=== PATIENT | male | born 1935 | race African-American/Black ===

== ENCOUNTER 2018-11-01 08:52 | Inpatient (IN) | payer OTHER ==
[2018-11-01] MEDS ORDERED: FUROSEMIDE 40 MG/4 ML INJECTABLE VIAL IVPUSH ONE ×2 (09:38→11:52)
--- NOTE | 2018-11-01 09:38 | PDOC ---
History of Present Illness - General History Source: Patient Exam Limitations: No Limitations - History of Present Illness Initial Comments: 11/01/18 09:44 The patient is a 83 year old male with a significant PMH of HTN, CHF, CKD, baseline creatinine of 4.2, who presents to the emergency department with worsening leg swelling. Patient denies any pain with walking but does state he is becoming short of breath with exertion. Patient notes he had his meds changed recently but has still not noticed any improvement in his leg swelling. Patient was sent in by Dr. Iqbal for further evaluation. The patient denies chest pain, shortness of breath, headache and dizziness. Denies fever, chills, nausea, vomit, diarrhea and constipation. Denies dysuria, frequency, urgency and hematuria. Allergies: NKA Past surgical history: None reported. Social history: No reported alcohol, drug or cigarette use. PCP: Dr. Iqbal <Alisia Lazo - Last Filed: 11/01/18 11:27> <Remedios Blanco - Last Filed: 11/01/18 11:54> - General Chief Complaint: Shortness of Breath Stated Complaint: SENT BY PCP / ADMIT Time Seen by Provider: 11/01/18 09:25 Past History <Alisia Lazo - Last Filed: 11/01/18 11:27> - Past Medical History COPD: No HTN: Yes Other medical history: 1 kidney not working properly - Surgical History Appendectomy: Yes - Suicide/Smoking/Psychosocial Hx Smoking History: Never smoked <Remedios Blanco - Last Filed: 11/01/18 11:54> - Past Medical History Allergies/Adverse Reactions: Allergies Allergy/AdvReac Type Severity Reaction Status Date / Time No Allergy Information Allergy Verified 11/01/18 08:59 Available Home Medications: Ambulatory Orders Ferrous Sulfate 325 mg PO DAILY 11/01/18 Isosorbide Mononitrate [Isosorbide Mononitrate ER] 120 mg PO DAILY 11/01/18 Pravastatin Sodium [Pravachol (Nf)] 40 mg PO HS 11/01/18 Sodium Bicarbonate - 650 mg PO DAILY 11/01/18 Tamsulosin HCl [Flomax] 0.4 mg PO DAILY 11/01/18 Torsemide 20 mg PO DAILY 11/01/18 Review of Systems - Review of Systems Able to Perform ROS?: Yes Comments:: 11/01/18 09:44 ADULT ROS GENERAL/CONSTITUTIONAL: No fever or chills. No weakness. HEAD, EYES, EARS, NOSE AND THROAT: No change in vision. No ear pain or discharge. No sore throat. CARDIOVASCULAR: No chest pain or shortness of breath. RESPIRATORY: No cough, wheezing, or hemoptysis. GASTROINTESTINAL: No nausea, vomiting, diarrhea or constipation. GENITOURINARY: No dysuria, frequency, or change in urination. MUSCULOSKELETAL: No joint or muscle swelling or pain. No neck or back pain. (+) leg swelling. SKIN: No rash NEUROLOGIC: No headache, vertigo, loss of consciousness, or change in strength/ sensation. ENDOCRINE: No increased thirst. No abnormal weight change. HEMATOLOGIC/LYMPHATIC: No anemia, easy bleeding, or history of blood clots. ALLERGIC/IMMUNOLOGIC: No hives or skin allergy. <Alisia Lazo - Last Filed: 11/01/18 11:27> *Physical Exam - Vital Signs Last Vital Signs Temp Pulse Resp BP Pulse Ox 97 F L 115 H 20 172/112 H 96 11/01/18 08:55 11/01/18 08:55 11/01/18 08:55 11/01/18 08:55 11/01/18 08:55 <Alisia Lazo - Last Filed: 11/01/18 11:27> - Vital Signs Last Vital Signs Temp Pulse Resp BP Pulse Ox 97 F L 115 H 20 172/112 H 96 11/01/18 08:55 11/01/18 08:55 11/01/18 08:55 11/01/18 08:55 11/01/18 08:55 - Physical Exam Comments: GENERAL: Awake, alert, and fully oriented, in no acute distress HEAD: No signs of trauma EYES: PERRLA, EOMI, sclera anicteric, conjunctiva clear ENT: Auricles normal inspection, hearing grossly normal, nares patent, oropharynx clear without exudates. Moist mucosa NECK: Normal ROM, supple, no lymphadenopathy, JVD, or masses LUNGS: Breath sounds equal, clear to auscultation bilaterally. No wheezes, and no crackles HEART: Regular rate and rhythm, normal S1 and S2, no murmurs, rubs or gallops ABDOMEN: Soft, nontender, normoactive bowel sounds. No guarding, no rebound. No masses EXTREMITIES: Normal range of motion, 3+ pitting edema to BLE with chronic stasis changes. No clubbing or cyanosis. No cords, erythema, or tenderness NEUROLOGICAL: Cranial nerves II through XII grossly intact. Normal speech, normal gait. Motor and sensation intact SKIN: Warm, Dry, normal turgor, no rashes or lesions noted. <Remedios Blanco - Last Filed: 11/01/18 11:54> Moderate Sedation - Procedure Monitoring Vital Signs: Procedure Monitoring Vital Signs Temperature 97 F L 11/01/18 08:55 Pulse Rate 115 H 11/01/18 08:55 Respiratory Rate 20 11/01/18 08:55 Blood Pressure 172/112 H 11/01/18 08:55 O2 Sat by Pulse Oximetry (%) 96 11/01/18 08:55 <Alisia Lazo - Last Filed: 11/01/18 11:27> - Procedure Monitoring Vital Signs: Procedure Monitoring Vital Signs Temperature 97 F L 11/01/18 08:55 Pulse Rate 115 H 11/01/18 08:55 Respiratory Rate 20 11/01/18 08:55 Blood Pressure 172/112 H 11/01/18 08:55 O2 Sat by Pulse Oximetry (%) 96 11/01/18 08:55 <Remedios Blanco - Last Filed: 11/01/18 11:54> Heart Score/ECG Review - ECG Impressions Comment:: EKG read 10:00- Sinus rhythm with 1st deg AV block, rate 76 bpm. +RBBB. <Remedios Blanco - Last Filed: 11/01/18 11:54> ED Treatment Course - LABORATORY CBC & Chemistry Diagram: 11/01/18 09:43 11/01/18 09:43 <Alisia Lazo - Last Filed: 11/01/18 11:27> - LABORATORY CBC & Chemistry Diagram: 11/01/18 09:43 11/01/18 09:43 <Remedios Blanco - Last Filed: 11/01/18 11:54> Medical Decision Making - Medical Decision Making 11/01/18 11:[address] Sun and Dr. Denise, awaiting call back. <Alisia Lazo - Last Filed: 11/01/18 11:27> - Medical Decision Making 11/01/18 10:41 Pt sent by PMD for admission for fluid overload despite taking torsemide at home (in increasing doses). He has history of CKD, followed by Dr. Denise. Will obtain labs and CXR, will give lasix IV, and will plan for admission. 11/01/18 11:34 Case d/w Dr. Denise, will evaluate. Patient has been accepted to hospitalist service (as per Dr. Sinha, she is admitting to hospitalist today). 11/01/18 11:53 D/w hospitalist Dr. Colunga, I will give an additional 40 mg lasix. D/w Dr. Hay, covering Dr. Sun. Will evaluate. <Remedios Blanco - Last Filed: 11/01/18 11:54> *DC/Admit/Observation/Transfer <Alisia Lazo - Last Filed: 11/01/18 11:27> - Discharge Dispostion Decision to Admit order: Yes <Remedios Blanco - Last Filed: 11/01/18 11:54> Diagnosis at time of Disposition: CHF (congestive heart failure) Qualifiers: Heart failure type: unspecified Heart failure chronicity: acute on chronic Qualified Code(s): I50.9 - Heart failure, unspecified - Discharge Dispostion Condition at time of disposition: Guarded
[2018-11-01] MEDS ORDERED: FUROSEMIDE 40 MG/4 ML INJECTABLE VIAL ONE ×2 (09:50→12:11)
[2018-11-01 09:56] LABS: BASO % 1.5 % (0-2.0); EOS % 3.2 % (0-4.5); HEMATOCRIT 35.4 % (35.4-49); HEMOGLOBIN 11.8 GM/dL (11.7-16.9); LYMPH % 16.4 % (8-40); MCHC 33.4 g/dl (32.0-35.9); MEAN CELL VOLUME 83.8 fl (80-96); MEAN PLT VOLUME 8.9 fl (7.5-11.1); MONO % 12.8 % (3.8-10.2); NEUT % 66.1 % (42.8-82.8); PLATELET COUNT 217 K/MM3 (134-434); RBC 4.22 M/mm3 (4.00-5.60); RDW 19.6 % (11.9-15.9); VENOUS PC02 41.9 mmHg (38-52); VENOUS PH 7.38 (7.32-7.42); WHITE BLOOD COUNT 5.1 K/mm3 (4.0-10.0)
[2018-11-01 10:06] LABS: INR 1.33 (0.83-1.09); PROTHROMBIN TIME (PATIENT) 15.7 SEC (9.7-13.0)
[2018-11-01 10:08] LABS: ACTIVATED PTT 35.3 SECONDS (25.2-36.5)
[2018-11-01 10:24] LABS: ALBUMIN 2.9 g/dl (3.4-5.0); ALK PHOS 100 U/L (45-117); ANION GAP 7 MMOL/L (8-16); BILIRUBIN,TOTAL 1.1 mg/dL (0.2-1); BLOOD UREA NITROGEN 37 mg/dL (7-18); CALCIUM 8.7 mg/dL (8.5-10.1); CHLORIDE 113 mmol/L (98-107); CO2 23 mmol/L (21-32); CREATININE 3.9 mg/dL (0.55-1.3); GLUCOSE,RANDOM 80 mg/dL (74-106); MAGNESIUM 2.5 mg/dL (1.8-2.4); N-TERMINAL BNP 15149.7 pg/ml (5-450); PHOSPHOROUS 3.4 mg/dL (2.5-4.9); POTASSIUM 4.2 mmol/L (3.5-5.1); SGOT/AST 11 U/L (15-37); SGPT/ALT 12 U/L (13-61); SODIUM 143 mmol/L (136-145); TOT PROT 7.3 g/dl (6.4-8.2)
[2018-11-01 10:49] LABS: URINE APPEARANCE CLEAR; URINE BILIRUBIN NEGATIVE (<2.0 mg/dL); URINE COLOR STRAW; URINE GLUCOSE (UA) NEGATIVE (NEGATIVE); URINE KETONE NEGATIVE (NEGATIVE); URINE LEUK ESTERASE NEGATIVE (NEGATIVE); URINE NITRITE NEGATIVE (NEGATIVE); URINE PROTEIN 3+ (NEGATIVE); URINE UROBILINOGEN NEGATIVE mg/dL (0.2-1.0)
[2018-11-01 11:00] LABS: URINE MUCUS RARE
--- NOTE | 2018-11-01 11:51 | HP ---
Admitting History and Physical - Primary Care Physician PCP: Tavo Iqbal - Admission Chief Complaint: SOB, weakness and leg swelling History of Present Illness: Pt is an 83 yo M with PMHx of HTN, CHF, CKD presenting with worsening SOB, weakness and leg swelling over the past month. Pt has dyspnea on exertion, orthopnea, PND and eventually had dyspnea even at rest. He reports bilateral osteoarthritis of knee, necessitating walking with a cane but has been more limited by the SOB. Recently his torsemide was increased to 60mg daily and he notes increased frequency of urine, but no blood or dysuria, flank pain or fever. He has no known history of diabetes. Pt followed up with his PCP on and was asked to come into the hospital for fluid overload treatment, but could only be brought in by the daughter today. Pt had likely ECHO done in [facility] about 2 months ago, unsure of results. Does not know if he had stress test done before. Unsure of creatinine- per ED 4.2 in past, 3.9 today. Pt reports worsening kidney function in the past year, unsure of when he was diagnosed with CKD. Pt 's daughter noted he has not been able to follow up for dialysis due to insurance issues. Lives with daughter and her and is said to be compliant on his medications. Nephro-Dr Katharina Singh Cardiol- Dr [phone], fax: [phone] ED Course: CXR- congestive features EKbpm, SR, with first degree AB block, RBBB, Laxis deviation, TWI- II, III, V6, QTC-519 BUN/Cr-37/3.9, BNP-15, 149.7, trops 0.05, UA- Spgr-1.008, Protein 3+ History Source: Patient, Family Member Limitations to Obtaining History: No Limitations - Past Medical History Cardiovascular: Yes: CHF, HTN Renal/: Yes: Renal Failure Heme/Onc: Yes: Anemia Musculoskeletal: Yes: Osteoarthritis (B/l knees) - Smoking History Smoking history: Former smoker (Smoked 1-2 cigarettes for over 60years quit 4 years ago) Have you smoked in the past 12 months: No Home Medications - Allergies Allergies/Adverse Reactions: Allergies Allergy/AdvReac Type Severity Reaction Status Date / Time No Allergy Information Allergy Verified 11/01/18 08:59 Available - Home Medications Home Medications: Ambulatory Orders Ferrous Sulfate 325 mg PO TID 11/01/18 Isosorbide Mononitrate [Isosorbide Mononitrate ER] 120 mg PO DAILY 11/01/18 Metoprolol Succinate 50 mg PO DAILY 11/01/18 Pravastatin Sodium [Pravachol (Nf)] 40 mg PO HS 11/01/18 Sodium Bicarbonate - 650 mg PO DAILY 11/01/18 Tamsulosin HCl [Flomax] 0.4 mg PO DAILY 11/01/18 Torsemide 60 mg PO DAILY 11/01/18 Family Disease History - Family Disease History Family History: Denies Review of Systems - Review of Systems Constitutional: denies: Chills, Diaphoresis, Fever Eyes: reports: No Symptoms HENT: reports: No Symptoms Neck: denies: Stiffness Cardiovascular: reports: Edema, Shortness of Breath. denies: Chest Pain, Palpitations Respiratory: reports: Cough, Exercise Intolerance, Orthopnea, SOB, SOB on Exertion. denies: Hemoptysis, Wheezing Gastrointestinal: denies: Abdominal Pain Genitourinary: reports: Frequency. denies: Burning, Dysuria, Hematuria Musculoskeletal: reports: Joint Pain. denies: Back Pain Neurological: denies: Change in LOC, Change in Speech, Confusion, Numbness, Parasthesia, Pre-Existing Deficit, Seizure, Syncope, Tremors Physical Examination Vital Signs: Vital Signs Temperature 97 F L 11/01/18 08:55 Pulse Rate 97 H 11/01/18 10:04 Respiratory Rate 22 H 11/01/18 10:04 Blood Pressure 151/93 11/01/18 10:04 O2 Sat by Pulse Oximetry (%) 100 11/01/18 10:04 Constitutional: Yes: Calm, Obese Eyes: Yes: Conjunctiva Clear Neck: Yes: Supple Cardiovascular: Yes: Regular Rate and Rhythm, JVD, S1, S2 Respiratory: Yes: CTA Bilaterally, Rales Gastrointestinal: Yes: Normal Bowel Sounds, Abdomen, Obese Renal/: No: CVA Tenderness - Left, CVA Tenderness - Right Edema: Yes Edema: LLE: 3+, RLE: 3+ Neurological: Yes: Alert, Oriented, Cran Nerves II-XII Intact. No: Confusion, Facial Droop ...Motor Strength: LUE, LLE, RUE, RLE Psychiatric: Yes: Alert, Oriented Labs: CBC, BMP 11/01/18 09:43 11/01/18 09:43 Assessment/Plan Ambulatory Orders Ferrous Sulfate 325 mg PO TID 11/01/18 Isosorbide Mononitrate [Isosorbide Mononitrate ER] 120 mg PO DAILY 11/01/18 Metoprolol Succinate 50 mg PO DAILY 11/01/18 Pravastatin Sodium [Pravachol (Nf)] 40 mg PO HS 11/01/18 Sodium Bicarbonate - 650 mg PO DAILY 11/01/18 Tamsulosin HCl [Flomax] 0.4 mg PO DAILY 11/01/18 Torsemide 60 mg PO DAILY 11/01/18 Current Medications Furosemide (Lasix Injection -) 60 mg IVPUSH BID@0600,1400 [facility] Heparin Sodium (Porcine) (Heparin -) 5,000 unit SQ Q8H [facility] Last Admin: 11/01/18 14:20 Dose: 5,000 unit Metoprolol Succinate (Toprol Xl -) 50 mg PO DAILY [facility] Last Admin: 11/01/18 14:47 Dose: Not Given Non-Formulary Medication (Ferrous Sulfate [Ferrous Sulfate]) 325 mg PO TID [facility] Non-Formulary Medication (Isosorbide Mononitrate [Isosorbide Mononitrate Er]) 120 mg PO DAILY [facility] Last Admin: 11/01/18 14:27 Dose: Not Given Non-Formulary Medication (Pravastatin Sodium) 40 mg PO [facility] Sodium Bicarbonate (Sodium Bicarbonate -) 650 mg PO DAILY [facility] Last Admin: 11/01/18 14:27 Dose: Not Given Tamsulosin HCl (Flomax -) 0.4 mg PO DAILY [facility] Last Admin: 11/01/18 14:27 Dose: Not Given Pt is an 83 yo M with PMHx of HTN, CHF, CKD presenting with worsening SOB, weakness and leg swelling over the past month. Pt has dyspnea on exertion, orthopnea, PND and eventually had dyspnea even at rest. 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, could be in light of worsening kidney function, appears pt is compliant No clear recent infections, EKG with some ischemic changes, unsure of duration Worsening function NYHA class III/IV Unsure if systolic or diastolic- ECHO pending Cardio consult Pt on torsemide 60mg at home, received 80mg lasix in ED Start iv furosemide 60mg bid Strict ins and outs Daily weights Fluid restriction Cont isosorbide Cont metoprolol Prolonged QTC- monitor lytes avoid QTC prolonging drugs Oxygen therapy as needed HTN BP elevated on admission to 172/112 >>151/93 Pt took am meds Cont metoprolol Consider adding ACEI if cards and nephro on board HLD Lipitor 40mg daily CKD Pt with proteinuria Cr- 3.9 Lasix 60mg bid Apears not to have responded to torsemide at home Avoid nephrotoxic meds Strict ins and outs Fluid restriction Obesity HgbA1c BPH Tamsolusin 0.4mg daily FEN No standing fluids Monitor lytes Sodium restricted diet, renal diet, cholesterol free PPx Heparin sq 40mg Q8H Dispo Tele Visit type - Emergency Visit Emergency Visit: Yes ED Registration Date: 11/01/18 Care time: The patient presented to the Emergency Department on the above date and was hospitalized for further evaluation of their emergent condition. - New Patient This patient is new to me today: Yes Date on this admission: 11/01/18 - Critical Care Critical Care patient: No
--- NOTE | 2018-11-01 12:33 | CON.CARD ---
Consult Consult Specialty:: Cardiology for dr. Sun Reason for Consultation:: chf - History of Present Illness History of Present Illness: The patient is a 83 year old male with a significant PMH of HTN, CHF, CKD, baseline creatinine of 4.2, who presents to the emergency department with worsening leg swelling. Patient denies any pain with walking but does state he is becoming short of breath with exertion. Patient notes he had his meds changed recently but has still not noticed any improvement in his leg swelling. Patient was sent in by Dr. Iqbal for further evaluation. The patient denies chest pain, shortness of breath, headache and dizziness. Denies fever, chills, nausea, vomit, diarrhea and constipation. Denies dysuria, frequency, urgency and hematuria. Allergies: NKA Past surgical history: None reported. Social history: No reported alcohol, drug or cigarette use. PCP: Dr. Iqbal - History Source History Provided By: Patient, Medical Record - Past Medical History Cardio/Vascular: Yes: CAD, CHF, HTN, Hyperlipdemia Renal/: Yes: Renal Failure - Smoking History Smoking history: Never smoked Home Medications - Allergies Allergies/Adverse Reactions: Allergies Allergy/AdvReac Type Severity Reaction Status Date / Time No Allergy Information Allergy Verified 11/01/18 08:59 Available - Home Medications Home Medications: Ambulatory Orders Ferrous Sulfate 325 mg PO TID 11/01/18 Isosorbide Mononitrate [Isosorbide Mononitrate ER] 120 mg PO DAILY 11/01/18 Metoprolol Succinate 50 mg PO DAILY 11/01/18 Pravastatin Sodium [Pravachol (Nf)] 40 mg PO HS 11/01/18 Sodium Bicarbonate - 650 mg PO DAILY 11/01/18 Tamsulosin HCl [Flomax] 0.4 mg PO DAILY 11/01/18 Torsemide 60 mg PO DAILY 11/01/18 Review of Systems - Review of Systems Constitutional: reports: No Symptoms Eyes: reports: No Symptoms HENT: reports: No Symptoms Neck: reports: No Symptoms Cardiovascular: reports: Edema, Shortness of Breath Respiratory: reports: SOB Gastrointestinal: reports: No Symptoms Genitourinary: reports: No Symptoms Breasts: reports: No Symptoms Reported Musculoskeletal: reports: No Symptoms Integumentary: reports: No Symptoms Neurological: reports: No Symptoms Endocrine: reports: No Symptoms Hematology/Lymphatic: reports: No Symptoms Psychiatric: reports: No Symptoms Vital Signs: Vital Signs Temperature 97 F L 11/01/18 08:55 Pulse Rate 97 H 11/01/18 10:04 Respiratory Rate 22 H 11/01/18 10:04 Blood Pressure 151/93 11/01/18 10:04 O2 Sat by Pulse Oximetry (%) 100 11/01/18 10:04 Constitutional: Yes: Well Nourished, No Distress, Calm Eyes: Yes: WNL, Conjunctiva Clear, EOM Intact HENT: Yes: WNL, Atraumatic, Normocephalic Neck: Yes: WNL, Supple, Trachea Midline Respiratory: Yes: WNL, Regular, CTA Bilaterally Gastrointestinal: Yes: WNL, Normal Bowel Sounds Renal/: Yes: WNL Cardiovascular: Yes: WNL, Regular Rate and Rhythm Musculoskeletal: Yes: WNL Extremities: Yes: WNL Edema: Yes Edema: LLE: 2+, RLE: 2+ Integumentary: Yes: WNL Neurological: Yes: WNL, Alert, Oriented ...Motor Strength: WNL Psychiatric: Yes: WNL, Alert, Oriented - Other Data Labs, Other Data: CBC, BMP 11/01/18 09:43 11/01/18 09:43 INR, PTT INR 1.33 (0.83-1.09) H 11/01/18 09:43 Troponin, BNP 11/01/18 09:43 Troponin I 0.05 B-Natriuretic Peptide 96191.7 H Troponin, BNP 11/01/18 09:43 Troponin I 0.05 B-Natriuretic Peptide 48701.7 H Imaging - Results Chest X-ray: Image Reviewed (pleural effusions increased markings) EKG: Image Reviewed (sr 1 st degree avb RBBB) Problem List - Problems (1) CHF (congestive heart failure) Code(s): I50.9 - HEART FAILURE, UNSPECIFIED Qualifiers: Heart failure type: unspecified Heart failure chronicity: acute on chronic Qualified Code(s): I50.9 - Heart failure, unspecified Assessment/Plan 83 year old male with a significant PMH of HTN, CHF, CKD,ASHD baseline creatinine of 4.2, who presents to the emergency department with worsening leg swelling. High BNP, Plan IV lasix renal consult appreciated echo old records regarding prior cardiac w/u BP control -will add Amlodipine 5 QD Lipid profile DVT plx Coverage for dr. Sun
[2018-11-01] MEDS ORDERED: HEPARIN NA (PORCINE) 5,000 UNITS/ML 1ML VIAL SQ SCH (12:45)
[2018-11-01] MEDS ORDERED: PATIENT'S OWN MEDICATION (NON-FORMULARY) (Isosorbide Mononitrate [Isosorbide Mononitrate E PO SCH (14:15)
[2018-11-01] MEDS: TAMSULOSIN HCL 0.4 MG CAP PO SCH (14:27)
[2018-11-01] MEDS: SODIUM BICARBONATE 650 MG TABLET PO SCH (14:27)
--- NOTE | 2018-11-01 14:39 | EKG ---
Test Reason : Blood Pressure : / mmHG Vent. Rate : 076 BPM Atrial Rate : 076 BPM P-R Int : 246 ms QRS Dur : 158 ms QT Int : 462 ms P-R-T Axes : 048 -35 -18 degrees QTc Int : 519 ms SINUS RHYTHM WITH 1ST DEGREE A-V BLOCK WITH OCCASIONAL PREMATURE VENTRICULAR COMPLEXES LEFT AXIS DEVIATION RIGHT BUNDLE BRANCH BLOCK ABNORMAL ECG NO PREVIOUS ECGS AVAILABLE Confirmed by Yo Moraes MD ([id number]) on 11/01/2018 2:39:26 PM Referred By: Confirmed By:Yo Moraes MD
--- NOTE | 2018-11-01 16:58 | PN ---
Teaching Attending Note Name of Resident: Esperanza Colunga ATTENDING PHYSICIAN STATEMENT I saw and evaluated the patient. I reviewed the resident's note and discussed the case with the resident. I agree with the resident's findings and plan as documented. SUBJECTIVE: CC: worsening SOB . HPI: 83 y/o man with h/o CKD, and HTN,and BPH who presented with worsening SOb and LE edema. He is poor historian and hx was obtained from him and his daughter. He has been having worsening SOB with exertion only for a while ( ? duration). He was on diuretics before but those were stopped 1-2 years ago. he follows with renal and cardiology for that. lately , he has been more SOB only with exertion , but no CP , so he saw his primary care doctor who spoke to his electronic publishing specialist Dr. Trinh. he was prescribed Torsemide 20 mg tab and was asked to take one pill three times a day. he did not take as he thinks diuretics don' t work for him. he was asked to come to ER on 10/30 but he did not . He also reprots LE edema which is progressive. No SOB at rest . He denies any h/o CHF. He had some cardiac testing done at [facility] 2 months ago, but not sure of details. In ER , he was given lasix and got some relief OBJECTIVE: NAD , awake, alert, oriented and cooperative HEENT: NC, AT, no facial droop. EOMI, round equal pupils, reactive to light , NO LAP in neck CV: RRR, No MRG, + JVD. Lungs: wheezing and crackles. Abd: obese, soft, NT, ND , NL BS Ext : 2+ edema , thick , hyperpigmented skin. fungal infection in some interdigital webs . Neuro : no facial droop. EOMI, round equal pupils, reactive to light, tongue and uvula at midline. sterngth 5/5 in upper and lower extremities proximally and distally. ASSESSMENT AND PLAN: 83 y/o man with h/o CKD, and HTN, and BPH who presented with worsening SOb and LE edema. 1- SOB, and LE edema: He is clearly volume overloaded. this could be due to 2 contributing factors, worsening CKD and possible cardiac dysfunction. he does not carry a diagnosis of heart failure, but will need to check his EF - start lasix 60 mg BID. awaiting Cardiac recs - cont his BB and Imdur -echo - Strict I&O and weights. - cardiac eval . - will try to obtain some records from his electronic publishing specialist on Saturday 2- CKD: not sure of Cr base line. - will d/w his field representative/health education . Monitor with diuresis 3- H/o TN: cont BB and nitrate 4- Tinea Pedis : use nystatin topically DVT PX: heparin
[2018-11-01 18:32] VITALS: BMI 34.0
[2018-11-01] MEDS: FERROUS SO4 325 MG TABLET (FP) PO SCH (21:09)
[2018-11-01] MEDS: ATORVASTATIN CA 10 MG TABLET (FP) PO SCH (21:09)
[2018-11-01] MEDS: HEPARIN NA (PORCINE) 5,000 UNITS/ML 1ML VIAL SQ SCH (21:09)
[2018-11-01] MEDS: ALBUTEROL SO4 2.5/IPRATROPIUM 0.5 INH SOL 3 ML VIAL.NEB. NEB SCH (21:45)
[2018-11-01] MEDS ORDERED: PATIENT'S OWN MEDICATION (NON-FORMULARY) (Pravastatin Sodium 40 MG) PO SCH (22:00)
[2018-11-01] MEDS ORDERED: PATIENT'S OWN MEDICATION (NON-FORMULARY) (Ferrous Sulfate [Ferrous Sulfate] 325 MG) PO SCH (22:00)
[2018-11-02] MEDS: FERROUS SO4 325 MG TABLET (FP) PO SCH ×3 (05:49→22:04)
[2018-11-02] MEDS: HEPARIN NA (PORCINE) 5,000 UNITS/ML 1ML VIAL SQ SCH ×3 (05:49→22:04)
[2018-11-02] MEDS: FUROSEMIDE 40 MG/4 ML INJECTABLE VIAL IVPUSH SCH ×2 (05:49→15:09)
[2018-11-02 07:38] LABS: BASO % 1.2 % (0-2.0); EOS % 3.2 % (0-4.5); HEMATOCRIT 35.3 % (35.4-49); HEMOGLOBIN 11.7 GM/dL (11.7-16.9); LYMPH % 14.7 % (8-40); MCHC 33.2 g/dl (32.0-35.9); MEAN CELL VOLUME 84.2 fl (80-96); MEAN PLT VOLUME 9.3 fl (7.5-11.1); NEUT % 69.9 % (42.8-82.8); PLATELET COUNT 207 K/MM3 (134-434); RBC 4.19 M/mm3 (4.00-5.60); RDW 19.5 % (11.9-15.9); WHITE BLOOD COUNT 5.1 K/mm3 (4.0-10.0)
[2018-11-02 07:45] LABS: INR 1.34 (0.83-1.09); PROTHROMBIN TIME (PATIENT) 15.8 SEC (9.7-13.0)
[2018-11-02 07:48] LABS: ACTIVATED PTT 31.3 SECONDS (25.2-36.5)
[2018-11-02] MEDS: ALBUTEROL SO4 2.5/IPRATROPIUM 0.5 INH SOL 3 ML VIAL.NEB. NEB SCH ×2 (08:26→20:50)
[2018-11-02 08:49] LABS: ALBUMIN 2.7 g/dl (3.4-5.0); ALK PHOS 97 U/L (45-117); ANION GAP 9 MMOL/L (8-16); BILIRUBIN,TOTAL 1.1 mg/dL (0.2-1); BLOOD UREA NITROGEN 37 mg/dL (7-18); CALCIUM 8.7 mg/dL (8.5-10.1); CHLORIDE 111 mmol/L (98-107); CO2 24 mmol/L (21-32); CREATININE 3.9 mg/dL (0.55-1.3); GLUCOSE,RANDOM 74 mg/dL (74-106); MAGNESIUM 2.5 mg/dL (1.8-2.4); PHOSPHOROUS 3.8 mg/dL (2.5-4.9); SGOT/AST 7 U/L (15-37); SGPT/ALT 11 U/L (13-61); SODIUM 145 mmol/L (136-145)
--- NOTE | 2018-11-02 09:37 | CONSULT ---
Consult - text type - Consultation Consultation Note: Renal consult for GENNARO on CKD with fluid overload This is a 83 year old gentleman with hx of CKD stage 4 ( baseline Cr ~3.3), Hypertension, DM, ? CHF who was sent into the ER for CHF exacerbation/fluid overload with Cr of 3.9. Pt was seen in the office earlier this week and noted to have fluid overload with Cr of 4.1. Pt was started on Torsemide 40mg Daily in Sep and Nifedpine ER however edema and and BP were not improved. Unclear if pt was actually taking medications. On most recent visit to the office pt was taken off Nifedipine ER because of worsening LE swelling and advised to continue Torsemdie 60mg daily. Pt denies any NSAID use. Denies any symptoms of obstruction. No N/V/D, confusion or lethargy. On IV lasix here and is urinating more. PMhx: as above Allergies: NKDA Family Hx: NC Social Hx: no T/A/D ROS: as per HPI Home Medications Medication Instructions Recorded Ferrous Sulfate 325 mg PO TID 11/01/18 Isosorbide Mononitrate [Isosorbide 120 mg PO DAILY 11/01/18 Mononitrate ER] Metoprolol Succinate 50 mg PO DAILY 11/01/18 Pravastatin Sodium [Pravachol (Nf)] 40 mg PO HS 11/01/18 Sodium Bicarbonate - 650 mg PO DAILY 11/01/18 Tamsulosin HCl [Flomax] 0.4 mg PO DAILY 11/01/18 Torsemide 60 mg PO DAILY 11/01/18 Vital Signs Temperature 98 F 11/02/18 09:20 Pulse Rate 108 H 11/02/18 09:20 Respiratory Rate 20 11/02/18 09:20 Blood Pressure 162/107 H 11/02/18 09:20 O2 Sat by Pulse Oximetry (%) 95 11/01/18 21:00 Intake & Output 10/30/18 10/31/18 11/01/18 11/02/18 23:59 23:59 23:59 23:59 Output Total 1400 250 Balance -1400 -250 Weight 98.656 kg 97.885 kg NAD awake and alert neck supple, no JVD RRR, No M/R CTA, dec BS at lung bases but no overt rales soft NT/ND Obese Abd ++ edema in LE no bladder distension CBC, BMP 11/02/18 06:00 11/02/18 06:00 Current Medications Albuterol/Ipratropium (Duoneb -) 1 amp NEB RBID [facility] Last Admin: 11/02/18 08:26 Dose: 1 amp Atorvastatin Calcium (Lipitor -) 10 mg PO HS [facility] Last Admin: 11/01/18 21:09 Dose: 10 mg Ferrous Sulfate (Feosol -) 325 mg PO TID [facility] Last Admin: 11/02/18 05:49 Dose: 325 mg Furosemide (Lasix Injection -) 60 mg IVPUSH BID@0600,1400 [facility] Last Admin: 11/02/18 05:49 Dose: 60 mg Heparin Sodium (Porcine) (Heparin -) 5,000 unit SQ TID [facility] Last Admin: 11/02/18 05:49 Dose: 5,000 unit Isosorbide Mononitrate (Imdur -) 120 mg PO DAILY [facility] Metoprolol Succinate (Toprol Xl -) 50 mg PO DAILY [facility] Last Admin: 11/01/18 14:47 Dose: Not Given Nystatin (Nystop Powder -) 1 applic TP DAILY [facility] Sodium Bicarbonate (Sodium Bicarbonate -) 650 mg PO DAILY [facility] Last Admin: 11/01/18 14:27 Dose: Not Given Tamsulosin HCl (Flomax -) 0.4 mg PO DAILY [facility] Last Admin: 11/01/18 14:27 Dose: Not Given 83 year old gentleman with hx of CKD stage 4 (baseline Cr ~3.3) , Hypertension, DM, ? CHF who was sent into the ER for CHF exacerbation/fluid overload with Cr of 3.9. #CKD stage 4 (baseline Cr 3.3) w/o nephrotic range proteinuria #Fluid overload/CHF exacerbation #Hypertension #BPH etiology of GENNARO intravascular volume depletion vs cardio-renal syndrome Check urine studies for FeUrea, UPCR Renal US to ensure there is no obstruction/structural abnormality with the kidney Continue IV Lasix 60mg BID Avoid HENRI/ARB, NSAIDs during this time no urgent indication for [employer] Trend renal function and electrolytes daily Continue Flomax Cardiology following, to obtain ECHO if BP remains above goal can titrate Beta destin or add vasodilator agent but would avoid CCB as it may be a contributor to leg edema Thank you Christopher Denise DO
[2018-11-02] MEDS: TAMSULOSIN HCL 0.4 MG CAP PO SCH (09:44)
[2018-11-02] MEDS: ISOSORBIDE MONONITRATE 60 MG TAB.SR.24H (FP) PO SCH (09:45)
[2018-11-02] MEDS: SODIUM BICARBONATE 650 MG TABLET PO SCH (09:45)
--- NOTE | 2018-11-02 09:46 | PN ---
Progress Note, Physician History of Present Illness: The patient is a 83 year old male with a significant PMH of HTN, CHF, CKD, baseline creatinine of 4.2, who presents to the emergency department with worsening leg swelling. Patient denies any pain with walking but does state he is becoming short of breath with exertion. Patient notes he had his meds changed recently but has still not noticed any improvement in his leg swelling. Patient was sent in by Dr. Iqbal for further evaluation. The patient denies chest pain, shortness of breath, headache and dizziness. Denies fever, chills, nausea, vomit, diarrhea and constipation. Denies dysuria, frequency, urgency and hematuria. Allergies: NKA Past surgical history: None reported. Social history: No reported alcohol, drug or cigarette use. PCP: Dr. Iqbal - Current Medication List Current Medications: Active Medications Albuterol/Ipratropium (Duoneb -) 1 amp NEB RBID [facility] Last Admin: 11/02/18 08:26 Dose: 1 amp Atorvastatin Calcium (Lipitor -) 10 mg PO HS [facility] Last Admin: 11/01/18 21:09 Dose: 10 mg Ferrous Sulfate (Feosol -) 325 mg PO TID [facility] Last Admin: 11/02/18 05:49 Dose: 325 mg Furosemide (Lasix Injection -) 60 mg IVPUSH BID@0600,1400 [facility] Last Admin: 11/02/18 05:49 Dose: 60 mg Heparin Sodium (Porcine) (Heparin -) 5,000 unit SQ TID [facility] Last Admin: 11/02/18 05:49 Dose: 5,000 unit Isosorbide Mononitrate (Imdur -) 120 mg PO DAILY [facility] Last Admin: 11/02/18 09:45 Dose: 120 mg Metoprolol Succinate (Toprol Xl -) 50 mg PO DAILY [facility] Last Admin: 11/02/18 09:45 Dose: 50 mg Nystatin (Nystop Powder -) 1 applic TP DAILY [facility] Sodium Bicarbonate (Sodium Bicarbonate -) 650 mg PO DAILY [facility] Last Admin: 11/02/18 09:45 Dose: 650 mg Tamsulosin HCl (Flomax -) 0.4 mg PO DAILY [facility] Last Admin: 11/02/18 09:44 Dose: 0.4 mg - Objective Vital Signs: Vital Signs Temperature 98 F 11/02/18 09:20 Pulse Rate 108 H 11/02/18 09:20 Respiratory Rate 20 11/02/18 09:20 Blood Pressure 162/107 H 11/02/18 09:20 O2 Sat by Pulse Oximetry (%) 95 11/01/18 21:00 Eyes: Yes: WNL, Conjunctiva Clear, EOM Intact HENT: Yes: WNL, Atraumatic, Normocephalic Neck: Yes: WNL, Supple, Trachea Midline Cardiovascular: Yes: WNL, Regular Rate and Rhythm Respiratory: Yes: WNL, Regular, CTA Bilaterally Gastrointestinal: Yes: WNL, Normal Bowel Sounds Genitourinary: Yes: WNL Musculoskeletal: Yes: WNL Extremities: Yes: WNL Edema: Yes Edema: LLE: 2+, RLE: 2+ Integumentary: Yes: WNL Neurological: Yes: WNL, Alert, Oriented ...Motor Strength: WNL Psychiatric: Yes: WNL Labs: CBC, BMP 11/02/18 06:00 11/02/18 06:00 INR, PTT INR 1.34 (0.83-1.09) H 11/02/18 06:00 Laboratory Tests 11/01/18 11/01/18 11/01/18 09:43 09:43 09:43 WBC 5.1 RBC 4.22 Hgb 11.8 Hct 35.4 MCV 83.8 MCH 28.0 MCHC 33.4 RDW 19.6 H Plt Count 217 MPV 8.9 Absolute Neuts (auto) 3.4 Neutrophils % 66.1 Lymphocytes % 16.4 Monocytes % 12.8 H Eosinophils % 3.2 Basophils % 1.5 Nucleated RBC % 0 PT with INR 15.70 H INR 1.33 H PTT (Actin FS) 35.3 VBG pH 7.38 POC VBG pCO2 41.9 POC VBG pO2 48.0 Mixed VBG HCO3 24.3 Sodium Potassium Chloride Carbon Dioxide Anion Gap BUN Creatinine Creat Clearance w eGFR Random Glucose Hemoglobin A1c % Calcium Phosphorus Magnesium Total Bilirubin AST ALT Alkaline Phosphatase Creatine Kinase Creatine Kinase Index CK-MB (CK-2) Troponin I B-Natriuretic Peptide Total Protein Albumin Urine Color Urine Appearance Urine pH Ur Specific [place] Urine Protein Urine Glucose (UA) Urine Ketones Urine Blood Urine Nitrite Urine Bilirubin Urine Urobilinogen Ur Leukocyte Esterase Urine WBC (Auto) Urine RBC (Auto) Urine Mucus Blood Type Antibody Screen 11/01/18 11/01/1811/01/19 09:43 09:43 10:38 WBC RBC Hgb Hct MCV MCH MCHC RDW Plt Count MPV Absolute Neuts (auto) Neutrophils % Lymphocytes % Monocytes % Eosinophils % Basophils % Nucleated RBC % PT with INR INR PTT (Actin FS) VBG pH POC VBG pCO2 POC VBG pO2 Mixed VBG HCO3 Sodium 143 Potassium 4.2 Chloride 113 H Carbon Dioxide 23 Anion Gap 7 L BUN 37 H Creatinine 3.9 H Creat Clearance w eGFR 14.91 Random Glucose 80 Hemoglobin A1c % Calcium 8.7 Phosphorus 3.4 Magnesium 2.5 H Total Bilirubin 1.1 H AST 11 L ALT 12 L Alkaline Phosphatase 100 Creatine Kinase 171 Creatine Kinase Index 0.8 CK-MB (CK-2) 1.5 Troponin I 0.05 B-Natriuretic Peptide 82451.7 H Total Protein 7.3 Albumin 2.9 L Urine Color Straw Urine Appearance Clear Urine pH 7.0 Ur Specific [place] 1.008 L Urine Protein 3+ H Urine Glucose (UA) Negative Urine Ketones Negative Urine Blood Negative Urine Nitrite Negative Urine Bilirubin Negative Urine Urobilinogen Negative Ur Leukocyte Esterase Negative Urine WBC (Auto) 1 Urine RBC (Auto) <1 Urine Mucus Rare Blood Type Cancelled Antibody Screen Cancelled 11/01/18 11/02/18 11/02/18 18:30 00:30 06:00 WBC 5.1 RBC 4.19 Hgb 11.7 Hct 35.3 L MCV 84.2 MCH 28.0 MCHC 33.2 RDW 19.5 H Plt Count 207 MPV 9.3 Absolute Neuts (auto) 3.6 Neutrophils % 69.9 Lymphocytes % 14.7 Monocytes % 11.0 H Eosinophils % 3.2 Basophils % 1.2 Nucleated RBC % 0 PT with INR INR PTT (Actin FS) VBG pH POC VBG pCO2 POC VBG pO2 Mixed VBG HCO3 Sodium Potassium Chloride Carbon Dioxide Anion Gap BUN Creatinine Creat Clearance w eGFR Random Glucose Hemoglobin A1c % Calcium Phosphorus Magnesium Total Bilirubin AST ALT Alkaline Phosphatase Creatine Kinase 150 Creatine Kinase Index 1.2 CK-MB (CK-2) 1.9 Troponin I 0.06 H 0.06 H B-Natriuretic Peptide Total Protein Albumin Urine Color Urine Appearance Urine pH Ur Specific [place] Urine Protein Urine Glucose (UA) Urine Ketones Urine Blood Urine Nitrite Urine Bilirubin Urine Urobilinogen Ur Leukocyte Esterase Urine WBC (Auto) Urine RBC (Auto) Urine Mucus Blood Type Antibody Screen 11/02/18 11/02/18 11/02/18 06:00 06:00 06:00 WBC RBC Hgb Hct MCV MCH MCHC RDW Plt Count MPV Absolute Neuts (auto) Neutrophils % Lymphocytes % Monocytes % Eosinophils % Basophils % Nucleated RBC % PT with INR 15.80 H INR 1.34 H PTT (Actin FS) 31.3 VBG pH POC VBG pCO2 POC VBG pO2 Mixed VBG HCO3 Sodium 145 Potassium 4.0 Chloride 111 H Carbon Dioxide 24 Anion Gap 9 BUN 37 H Creatinine 3.9 H Creat Clearance w eGFR 14.91 Random Glucose 74 Hemoglobin A1c % 5.7 Calcium 8.7 Phosphorus 3.8 Magnesium 2.5 H Total Bilirubin 1.1 H AST 7 L ALT 11 L Alkaline Phosphatase 97 Creatine Kinase Cancelled Creatine Kinase Index CK-MB (CK-2) Troponin I 0.06 H B-Natriuretic Peptide Total Protein 7.0 Albumin 2.7 L Urine Color Urine Appearance Urine pH Ur Specific [place] Urine Protein Urine Glucose (UA) Urine Ketones Urine Blood Urine Nitrite Urine Bilirubin Urine Urobilinogen Ur Leukocyte Esterase Urine WBC (Auto) Urine RBC (Auto) Urine Mucus Blood Type Antibody Screen Problem List - Problems (1) CHF (congestive heart failure) Code(s): I50.9 - HEART FAILURE, UNSPECIFIED Qualifiers: Heart failure type: unspecified Heart failure chronicity: acute on chronic Qualified Code(s): I50.9 - Heart failure, unspecified Assessment/Plan 83 year old male with a significant PMH of HTN, CHF, CKD,ASHD baseline creatinine of 4.2, who presents to the emergency department with worsening leg swelling. High BNP, Plan IV lasix renal consult appreciated echo old records regarding prior cardiac w/u BP control -will add Amlodipine 5 QD Lipid profile DVT plx Coverage for dr. Sun
[2018-11-02] MEDS: amLODIPine BESYLATE 5 MG TABLET (FP) PO SCH (11:42)
--- NOTE | 2018-11-02 15:14 | PN ---
Progress Note (short form) - Note Progress Note: Subjective: No fever or chills. No abd pain, no SOLIS , SOB improved Objective: Vital Signs: Last Vital Signs Temp Pulse Resp BP Pulse Ox 97.7 F 72 20 140/92 92 L 11/02/18 14:56 11/02/18 14:56 11/02/18 14:56 11/02/18 14:56 11/02/18 09:00 Laboratory Results - last 24 hr 11/01/18 11/02/18 11/02/18 18:30 00:30 06:00 WBC 5.1 RBC 4.19 Hgb 11.7 Hct 35.3 L MCV 84.2 MCH 28.0 MCHC 33.2 RDW 19.5 H Plt Count 207 MPV 9.3 Absolute Neuts (auto) 3.6 Neutrophils % 69.9 Lymphocytes % 14.7 Monocytes % 11.0 H Eosinophils % 3.2 Basophils % 1.2 Nucleated RBC % 0 PT with INR INR PTT (Actin FS) Sodium Potassium Chloride Carbon Dioxide Anion Gap BUN Creatinine Creat Clearance w eGFR Random Glucose Hemoglobin A1c % Calcium Phosphorus Magnesium Total Bilirubin AST ALT Alkaline Phosphatase Creatine Kinase 150 Creatine Kinase Index 1.2 CK-MB (CK-2) 1.9 Troponin I 0.06 H 0.06 H Total Protein Albumin 11/02/18 11/02/18 11/02/18 06:00 06:00 06:00 WBC RBC Hgb Hct MCV MCH MCHC RDW Plt Count MPV Absolute Neuts (auto) Neutrophils % Lymphocytes % Monocytes % Eosinophils % Basophils % Nucleated RBC % PT with INR 15.80 H INR 1.34 H PTT (Actin FS) 31.3 Sodium 145 Potassium 4.0 Chloride 111 H Carbon Dioxide 24 Anion Gap 9 BUN 37 H Creatinine 3.9 H Creat Clearance w eGFR 14.91 Random Glucose 74 Hemoglobin A1c % 5.7 Calcium 8.7 Phosphorus 3.8 Magnesium 2.5 H Total Bilirubin 1.1 H AST 7 L ALT 11 L Alkaline Phosphatase 97 Creatine Kinase Cancelled Creatine Kinase Index CK-MB (CK-2) Troponin I 0.06 H Total Protein 7.0 Albumin 2.7 L Physical Exam: NAD CV: RRR, No MRG, + JVD. Lungs: decreased wheezing Abd: obese, soft, NT, ND , NL BS Ext: 1+ edema, thick , hyperpigmented skin. fungal infection in some interdigital webs . ASSESSMENT AND PLAN: 83 y/o man with h/o CKD, and HTN, and BPH who presented with worsening SOb and LE edema. 1- volume over load form worsening renal disease and possible acute CHF ( ? systolic vs diastolic) - cont lasix 60 BID - echo pending - spoke to Dr. Denise, cr base line 3.3 - strict I&Os - ryan obtain cardiac w/u from [facility] 2- GENNARO on CKD : likely prerenal in setting of volume overload. - renal US pending - cont diuresis 3- H/o TN: cont BB and nitrate . Norvasc added 4- Tinea Pedis : use nystatin topically DVT PX: heparin Visit type - Emergency Visit Emergency Visit: Yes ED Registration Date: 11/01/18 Care time: The patient presented to the Emergency Department on the above date and was hospitalized for further evaluation of their emergent condition. - New Patient This patient is new to me today: No - Critical Care Critical Care patient: No
[2018-11-02] MEDS: ATORVASTATIN CA 10 MG TABLET (FP) PO SCH (22:04)
[2018-11-02] MEDS: NYSTATIN POWDER 100,000 UNITS/GM - 15 GM TOPICAL POWDER TP SCH (23:00)
[2018-11-03] MEDS: FERROUS SO4 325 MG TABLET (FP) PO SCH ×3 (06:49→21:40)
[2018-11-03] MEDS: FUROSEMIDE 40 MG/4 ML INJECTABLE VIAL IVPUSH SCH ×2 (06:49→14:19)
[2018-11-03] MEDS: HEPARIN NA (PORCINE) 5,000 UNITS/ML 1ML VIAL SQ SCH ×3 (06:49→21:40)
[2018-11-03] MEDS: ALBUTEROL SO4 2.5/IPRATROPIUM 0.5 INH SOL 3 ML VIAL.NEB. NEB SCH ×2 (07:32→20:14)
--- NOTE | 2018-11-03 09:32 | PN ---
Progress Note, Physician Chief Complaint: seen and examined, no distress Feels better TELE: NSR - Current Medication List Current Medications: Active Medications Albuterol/Ipratropium (Duoneb -) 1 amp NEB RBID [facility] Last Admin: 11/03/18 07:32 Dose: 1 amp Amlodipine Besylate (Norvasc -) 5 mg PO DAILY [facility] Last Admin: 11/02/18 11:42 Dose: 5 mg Atorvastatin Calcium (Lipitor -) 10 mg PO HS [facility] Last Admin: 11/02/18 22:04 Dose: 10 mg Ferrous Sulfate (Feosol -) 325 mg PO TID [facility] Last Admin: 11/03/18 06:49 Dose: 325 mg Furosemide (Lasix Injection -) 60 mg IVPUSH BID@0600,1400 [facility] Last Admin: 11/03/18 06:49 Dose: 60 mg Heparin Sodium (Porcine) (Heparin -) 5,000 unit SQ TID [facility] Last Admin: 11/03/18 06:49 Dose: 5,000 unit Isosorbide Mononitrate (Imdur -) 120 mg PO DAILY [facility] Last Admin: 11/02/18 09:45 Dose: 120 mg Metoprolol Succinate (Toprol Xl -) 50 mg PO DAILY [facility] Last Admin: 11/02/18 09:45 Dose: 50 mg Nystatin (Nystop Powder -) 1 applic TP DAILY [facility] Last Admin: 11/02/18 23:00 Dose: 1 applic Sodium Bicarbonate (Sodium Bicarbonate -) 650 mg PO DAILY [facility] Last Admin: 11/02/18 09:45 Dose: 650 mg Tamsulosin HCl (Flomax -) 0.4 mg PO DAILY [facility] Last Admin: 11/02/18 09:44 Dose: 0.4 mg - Objective Vital Signs: Vital Signs Temperature 98.5 F 11/03/18 06:00 Pulse Rate 73 11/03/18 06:00 Respiratory Rate 20 11/03/18 06:00 Blood Pressure 121/84 11/03/18 06:00 O2 Sat by Pulse Oximetry (%) 95 11/02/18 20:51 Constitutional: Yes: No Distress, Calm Eyes: Yes: Conjunctiva Clear Cardiovascular: Yes: Regular Rate and Rhythm Respiratory: Yes: CTA Bilaterally (no rales or wheezing) Gastrointestinal: Yes: Soft Edema: Yes Edema: LLE: 2+, RLE: 2+ Neurological: Yes: Alert, Oriented ...Motor Strength: WNL Labs: CBC, BMP 11/02/18 06:00 11/02/18 06:00 INR, PTT INR 1.34 (0.83-1.09) H 11/02/18 06:00 - ....Imaging EKG: Image Reviewed Assessment/Plan Assessment/Plan 83 year old male with a significant PMH of HTN, CHF, CKD,ASHD baseline creatinine of 4.2, who presents to the emergency department with worsening leg swelling and elevated BNP. REC: Mild clinical improvement: 1.To continue IV Lasix with close monitoring renal fxn and daily weights 2. Echo 3. Will review office records- patient is follow by my protective officer Dr. Fish Will follow.
[2018-11-03] MEDS: ISOSORBIDE MONONITRATE 60 MG TAB.SR.24H (FP) PO SCH (10:21)
[2018-11-03] MEDS: TAMSULOSIN HCL 0.4 MG CAP PO SCH (10:21)
[2018-11-03] MEDS: amLODIPine BESYLATE 5 MG TABLET (FP) PO SCH (10:21)
[2018-11-03] MEDS: SODIUM BICARBONATE 650 MG TABLET PO SCH (10:22)
[2018-11-03] MEDS: NYSTATIN POWDER 100,000 UNITS/GM - 15 GM TOPICAL POWDER TP SCH (10:25)
--- NOTE | 2018-11-03 11:37 | PN ---
Progress Note (short form) - Note Progress Note: Renal follow up for GENNARO/CKD and fluid overload Pt seen and examined at the bedside reports feeling better leg edema improved, sob improved making urine Vital Signs Temperature 98.5 F 11/03/18 06:00 Pulse Rate 73 11/03/18 06:00 Respiratory Rate 20 11/03/18 06:00 Blood Pressure 121/84 11/03/18 06:00 O2 Sat by Pulse Oximetry (%) 95 11/02/18 20:51 Intake & Output 10/31/18 11/01/18 11/02/18 11/03/18 23:59 23:59 23:59 23:59 Intake Total 260 20 Output Total 1400 900 Balance -1400 -640 20 Weight 98.656 kg 97.885 kg 97.125 kg NAD awake and alert neck supple, no JVD RRR, No M/R CTA, dec BS soft NT/ND Obese Abd + edema in LE no bladder distension CBC, BMP 11/02/18 06:00 11/02/18 06:00 Current Medications Albuterol/Ipratropium (Duoneb -) 1 amp NEB RBID [facility] Last Admin: 11/03/18 07:32 Dose: 1 amp Amlodipine Besylate (Norvasc -) 5 mg PO DAILY [facility] Last Admin: 11/03/18 10:21 Dose: 5 mg Atorvastatin Calcium (Lipitor -) 10 mg PO HS [facility] Last Admin: 11/02/18 22:04 Dose: 10 mg Ferrous Sulfate (Feosol -) 325 mg PO TID [facility] Last Admin: 11/03/18 06:49 Dose: 325 mg Furosemide (Lasix Injection -) 60 mg IVPUSH BID@0600,1400 [facility] Last Admin: 11/03/18 06:49 Dose: 60 mg Heparin Sodium (Porcine) (Heparin -) 5,000 unit SQ TID [facility] Last Admin: 11/03/18 06:49 Dose: 5,000 unit Isosorbide Mononitrate (Imdur -) 120 mg PO DAILY [facility] Last Admin: 11/03/18 10:21 Dose: 120 mg Metoprolol Succinate (Toprol Xl -) 50 mg PO DAILY [facility] Last Admin: 11/03/18 10:22 Dose: 50 mg Nystatin (Nystop Powder -) 1 applic TP DAILY [facility] Last Admin: 11/03/18 10:25 Dose: 1 applic Sodium Bicarbonate (Sodium Bicarbonate -) 650 mg PO DAILY [facility] Last Admin: 11/03/18 10:22 Dose: 650 mg Tamsulosin HCl (Flomax -) 0.4 mg PO DAILY [facility] Last Admin: 11/03/18 10:21 Dose: 0.4 mg 83 year old gentleman with hx of CKD stage 4 (baseline Cr ~3.3) , Hypertension, DM, ? CHF who was sent into the ER for CHF exacerbation/fluid overload with Cr of 3.9. #CKD stage 4 (baseline Cr 3.3) w/o nephrotic range proteinuria #Fluid overload/CHF exacerbation #Hypertension #BPH etiology of GENNARO intravascular volume depletion vs cardio-renal syndrome Check urine studies for FeUrea, UPCR - pending Renal US to ensure there is no obstruction/structural abnormality with the kidney Continue IV Lasix 60mg BID to achieve weight loss Trend renal function and electrolytes daily Continue Flomax Cardiology following, to obtain ECHO Thank you Christopher Denise DO
[2018-11-03 13:21] LABS: ANION GAP 6 MMOL/L (8-16); BLOOD UREA NITROGEN 36 mg/dL (7-18); CALCIUM 8.7 mg/dL (8.5-10.1); CHLORIDE 108 mmol/L (98-107); CO2 28 mmol/L (21-32); CREATININE 3.9 mg/dL (0.55-1.3); GLUCOSE,RANDOM 97 mg/dL (74-106); MAGNESIUM 2.4 mg/dL (1.8-2.4); POTASSIUM 3.8 mmol/L (3.5-5.1); SODIUM 142 mmol/L (136-145)
[2018-11-03] MEDS: POLYETHYLENE GLYCOL 3350 119 GM BTL PO SCH (14:16)
--- NOTE | 2018-11-03 14:22 | PN ---
Physical Exam: SUBJECTIVE: Patient seen and examined at bedside. Pt eating breakfast. Denies chest pain or shortness of breath. OBJECTIVE: Vital Signs Period Temp Pulse Resp BP Sys/Ware Pulse Ox Last 24 Hr 97.7 F-98.5 F 72-86 20-20 121-155/75-92 95-95 GENERAL: Alert Oriented no acute distress EYES: extraocular movements intact, sclera anicteric, conjunctiva clear. NECK: + JVD. Supple LUNGS: Left base expiratory wheezing/crackles. HEART: RRR S1S2 ABDOMEN: NDNT. EXTREMITIES: Venous stasis b/l. . SKIN: Warm, dry, normal turgor, no rashes or lesions noted Laboratory Results - last 24 hr 11/03/18 11/03/18 12:10 12:30 Sodium 142 Potassium 3.8 Chloride 108 H Carbon Dioxide 28 Anion Gap 6 L BUN 36 H Creatinine 3.9 H Creat Clearance w eGFR 14.91 Random Glucose 97 Calcium 8.7 Magnesium 2.4 U Random Total Protein 229.7 H Urine Creatinine 56.0 Active Medications Generic Name Dose Route Start Last Admin Trade Name Freq PRN Reason Stop Dose Admin Albuterol/Ipratropium 1 amp 11/01/18 20:00 11/03/18 07:32 Duoneb - NEB 1 amp RBID [facility] Administration Amlodipine Besylate 5 mg 11/02/18 10:15 11/03/18 10:21 Norvasc - PO 5 mg DAILY [facility] Administration Atorvastatin Calcium 10 mg 11/01/18 22:00 11/02/18 22:04 Lipitor - PO 10 mg HS [facility] Administration Ferrous Sulfate 325 mg 11/01/18 22:00 11/03/18 06:49 Feosol - PO 325 mg TID [facility] Administration Furosemide 60 mg 11/02/18 06:00 11/03/18 06:49 Lasix Injection - IVPUSH 60 mg BID@0600,1400 [facility] Administration Heparin Sodium (Porcine) 5,000 unit 11/01/18 15:44 11/03/18 06:49 Heparin - SQ 5,000 unit TID [facility] Administration Isosorbide Mononitrate 120 mg 11/02/18 10:00 11/03/18 10:21 Imdur - PO 120 mg DAILY [facility] Administration Metoprolol Succinate 50 mg 11/01/18 14:15 11/03/18 10:22 Toprol Xl - PO 50 mg DAILY [facility] Administration Nystatin 1 applic 11/02/18 10:00 11/03/18 10:25 Nystop Powder - TP 1 applic DAILY [facility] Administration Polyethylene Glycol 17 gm 11/03/18 13:45 Miralax (For Daily Use) - PO DAILY [facility] Sodium Bicarbonate 650 mg 11/01/18 14:15 11/03/18 10:22 Sodium Bicarbonate - PO 650 mg DAILY [facility] Administration Tamsulosin HCl 0.4 mg 11/01/18 14:15 11/03/18 10:21 Flomax - PO 0.4 mg DAILY [facility] Administration ASSESSMENT/PLAN: Pt is an 83 yo M with PMHx of HTN, CHF, CKD presenting with worsening SOB, weakness and leg swelling over the past month. Pt has dyspnea on exertion, orthopnea, PND and eventually had dyspnea even at rest. #Acute CHF exacerbation Unsure of heel sorter, could be in light of worsening kidney function, appears pt is compliant -Worsening function NYHA class III/IV -ECHO pending -Cardio consult- Dr Sun on board -iv furosemide 60mg bid -Strict ins and outs -Daily weights -Fluid restriction - isosorbide -metoprolol Prolonged QTC- monitor lytes avoid QTC prolonging drugs Oxygen therapy as needed # HTN - Metoprolol # HLD Lipitor 40mg daily # CKD Pt with proteinuria Cr- 3.9 Lasix 60mg bid Avoid nephrotoxic meds Strict ins and outs Fluid restriction -Dr Denise on board--> check urine studies for FeUrea, UPCR - pending Renal US to ensure there is no obstruction/structural abnormality with the kidney #BPH Tamsulosin 0.4mg daily #FEN No standing fluids Monitor lytes Sodium restricted diet, renal diet, cholesterol free PPx Heparin SQ TID #Dispo Tele Visit type - Emergency Visit Emergency Visit: Yes ED Registration Date: 11/01/18 Care time: The patient presented to the Emergency Department on the above date and was hospitalized for further evaluation of their emergent condition. - New Patient This patient is new to me today: Yes Date on this admission: 11/03/18 - Critical Care Critical Care patient: No - Discharge Referral Referred to [facility] No
--- NOTE | 2018-11-03 15:00 | PN ---
Teaching Attending Note Name of Resident: Elia Iqbal ATTENDING PHYSICIAN STATEMENT I saw and evaluated the patient. I reviewed the resident's note and discussed the case with the resident. I agree with the resident's findings and plan as documented. SUBJECTIVE: No fever or chills . No abd pain. SOB has improved , NO CP. OBJECTIVE: NAD. CV: RRR, No MRG, + JVD. Lungs: mild crackles at L base , with minimal wheezes Abd: obese, soft, NT, ND , NL BS Ext: 1+ edema, thick , hyperpigmented skin. ASSESSMENT AND PLAN: 83 y/o man with h/o CKD, and HTN, and BPH who presented with worsening SOb and LE edema. 1- Volume over load form worsening renal disease and possible acute CHF ( ? systolic vs diastolic) - cont lasix 60 BID - echo pending read - strict I&Os - appreciate card help. out pt records to be reviewed 2- GENNARO on CKD : likely prerenal in setting of volume overload. - renal US pending - FE urea pending, order urine urea. - nephrotic range protein usewa 4.1 g /24hr . - cont diuresis - appreciate renal f/u 3- H/o HTN: cont BB and nitrateand Norvasc 4- Tinea Pedis : use nystatin topically DVT PX: heparin
[2018-11-03] MEDS: ATORVASTATIN CA 10 MG TABLET (FP) PO SCH (21:40)
[2018-11-04] MEDS: HEPARIN NA (PORCINE) 5,000 UNITS/ML 1ML VIAL SQ SCH ×3 (06:10→21:44)
[2018-11-04] MEDS: FERROUS SO4 325 MG TABLET (FP) PO SCH ×3 (06:10→21:44)
[2018-11-04] MEDS: FUROSEMIDE 40 MG/4 ML INJECTABLE VIAL IVPUSH SCH ×2 (06:10→13:43)
[2018-11-04 07:15] LABS: HEMATOCRIT 31.9 % (35.4-49); HEMOGLOBIN 10.5 GM/dL (11.7-16.9); MCH 27.5 pg (25.7-33.7); MEAN CELL VOLUME 83.1 fl (80-96); MEAN PLT VOLUME 9.1 fl (7.5-11.1); PLATELET COUNT 203 K/MM3 (134-434); RBC 3.84 M/mm3 (4.00-5.60); RDW 19.4 % (11.9-15.9); WHITE BLOOD COUNT 4.7 K/mm3 (4.0-10.0)
[2018-11-04 07:47] LABS: ANION GAP 7 MMOL/L (8-16); BLOOD UREA NITROGEN 34 mg/dL (7-18); CALCIUM 8.1 mg/dL (8.5-10.1); CHLORIDE 106 mmol/L (98-107); CO2 28 mmol/L (21-32); CREATININE 3.7 mg/dL (0.55-1.3); GLUCOSE,RANDOM 74 mg/dL (74-106); MAGNESIUM 2.2 mg/dL (1.8-2.4); PHOSPHOROUS 3.9 mg/dL (2.5-4.9); POTASSIUM 3.7 mmol/L (3.5-5.1); SODIUM 140 mmol/L (136-145)
[2018-11-04] MEDS: ALBUTEROL SO4 2.5/IPRATROPIUM 0.5 INH SOL 3 ML VIAL.NEB. NEB SCH ×2 (07:49→20:40)
--- NOTE | 2018-11-04 09:23 | PN ---
Progress Note, Physician Chief Complaint: seen and examined TELE: NSR, NSVT- self limited. History of Present Illness: Office records reviewed Patient has CKD and chronic diastolic CHF. Chronic PHTN. - Current Medication List Current Medications: Active Medications Albuterol/Ipratropium (Duoneb -) 1 amp NEB RBID [facility] Last Admin: 11/04/18 07:49 Dose: 1 amp Amlodipine Besylate (Norvasc -) 5 mg PO DAILY [facility] Last Admin: 11/03/18 10:21 Dose: 5 mg Atorvastatin Calcium (Lipitor -) 10 mg PO HS [facility] Last Admin: 11/03/18 21:40 Dose: 10 mg Ferrous Sulfate (Feosol -) 325 mg PO TID [facility] Last Admin: 11/04/18 06:10 Dose: 325 mg Furosemide (Lasix Injection -) 60 mg IVPUSH BID@0600,1400 [facility] Last Admin: 11/04/18 06:10 Dose: 60 mg Heparin Sodium (Porcine) (Heparin -) 5,000 unit SQ TID [facility] Last Admin: 11/04/18 06:10 Dose: 5,000 unit Isosorbide Mononitrate (Imdur -) 120 mg PO DAILY [facility] Last Admin: 11/03/18 10:21 Dose: 120 mg Metoprolol Succinate (Toprol Xl -) 50 mg PO DAILY [facility] Last Admin: 11/03/18 10:22 Dose: 50 mg Nystatin (Nystop Powder -) 1 applic TP DAILY [facility] Last Admin: 11/03/18 10:25 Dose: 1 applic Polyethylene Glycol (Miralax (For Daily Use) -) 17 gm PO DAILY [facility] Last Admin: 11/03/18 14:16 Dose: 17 grams Sodium Bicarbonate (Sodium Bicarbonate -) 650 mg PO DAILY [facility] Last Admin: 11/03/18 10:22 Dose: 650 mg Tamsulosin HCl (Flomax -) 0.4 mg PO DAILY [facility] Last Admin: 11/03/18 10:21 Dose: 0.4 mg - Objective Vital Signs: Vital Signs Temperature 98.2 F 11/04/18 09:11 Pulse Rate 77 11/04/18 09:11 Respiratory Rate 22 H 11/04/18 09:11 Blood Pressure 152/98 11/04/18 09:11 O2 Sat by Pulse Oximetry (%) 94 L 11/04/18 09:00 Constitutional: Yes: Calm Eyes: Yes: Conjunctiva Clear Cardiovascular: Yes: Regular Rate and Rhythm Respiratory: Yes: CTA Bilaterally Gastrointestinal: Yes: Soft Edema: Yes Edema: LLE: 2+, RLE: 2+ Neurological: Yes: Alert, Oriented ...Motor Strength: WNL Labs: CBC, BMP 11/04/18 05:20 11/04/18 05:20 INR, PTT INR 1.34 (0.83-1.09) H 11/02/18 06:00 - ....Imaging EKG: Image Reviewed Assessment/Plan 83 year old male with a significant PMH of HTN, CHF, CKD,ASHD baseline creatinine of 4.2, who presents to the emergency department with worsening leg swelling and elevated BNP. REC: Slightly improved. 1.To continue IV Lasix with close monitoring renal fxn and daily weights 2. Echo pending 3. I have reviewed office records: CKD and edema are chronic. He also has chronic PHTN. Edema has been difficult to manage as outpatient with oral diuretics. Will follow.
[2018-11-04] MEDS: SODIUM BICARBONATE 650 MG TABLET PO SCH (09:46)
[2018-11-04] MEDS: ISOSORBIDE MONONITRATE 60 MG TAB.SR.24H (FP) PO SCH (09:46)
[2018-11-04] MEDS: amLODIPine BESYLATE 5 MG TABLET (FP) PO SCH (09:46)
[2018-11-04] MEDS: TAMSULOSIN HCL 0.4 MG CAP PO SCH (09:47)
[2018-11-04] MEDS: POLYETHYLENE GLYCOL 3350 119 GM BTL PO SCH (09:47)
[2018-11-04] MEDS: NYSTATIN POWDER 100,000 UNITS/GM - 15 GM TOPICAL POWDER TP SCH (09:48)
--- NOTE | 2018-11-04 11:24 | PN ---
Progress Note (short form) - Note Progress Note: Renal follow up for GENNARO/CKD and fluid overload Pt seen and examined at the bedside no acute complaints feels better making urine was able to ambulate yesterday Vital Signs Temperature 98.2 F 11/04/18 09:11 Pulse Rate 77 11/04/18 09:11 Respiratory Rate 22 H 11/04/18 09:11 Blood Pressure 152/98 11/04/18 09:11 O2 Sat by Pulse Oximetry (%) 94 L 11/04/18 09:00 Intake & Output 11/01/18 11/02/18 11/03/18 11/04/18 23:59 23:59 23:59 23:59 Intake Total 260 40 20 Output Total 5092 419 9255 200 Balance -1400 -640 -1060 -180 Weight 98.656 kg 97.885 kg 97.125 kg 95.708 kg NAD awake and alert neck supple, no JVD RRR, No M/R CTA, dec BS soft NT/ND Obese Abd + edema in LE no bladder distension CBC, BMP 11/04/18 05:20 11/04/18 05:20 Current Medications Albuterol/Ipratropium (Duoneb -) 1 amp NEB RBID [facility] Last Admin: 11/04/18 07:49 Dose: 1 amp Amlodipine Besylate (Norvasc -) 5 mg PO DAILY [facility] Last Admin: 11/04/18 09:46 Dose: 5 mg Atorvastatin Calcium (Lipitor -) 10 mg PO HS [facility] Last Admin: 11/03/18 21:40 Dose: 10 mg Ferrous Sulfate (Feosol -) 325 mg PO TID [facility] Last Admin: 11/04/18 06:10 Dose: 325 mg Furosemide (Lasix Injection -) 60 mg IVPUSH BID@0600,1400 [facility] Last Admin: 11/04/18 06:10 Dose: 60 mg Heparin Sodium (Porcine) (Heparin -) 5,000 unit SQ TID [facility] Last Admin: 11/04/18 06:10 Dose: 5,000 unit Isosorbide Mononitrate (Imdur -) 120 mg PO DAILY [facility] Last Admin: 11/04/18 09:46 Dose: 120 mg Metoprolol Succinate (Toprol Xl -) 75 mg PO DAILY [facility] Nystatin (Nystop Powder -) 1 applic TP DAILY [facility] Last Admin: 11/04/18 09:48 Dose: 1 applic Polyethylene Glycol (Miralax (For Daily Use) -) 17 gm PO DAILY [facility] Last Admin: 11/04/18 09:47 Dose: Not Given Sodium Bicarbonate (Sodium Bicarbonate -) 650 mg PO DAILY [facility] Last Admin: 11/04/18 09:46 Dose: 650 mg Tamsulosin HCl (Flomax -) 0.4 mg PO DAILY [facility] Last Admin: 11/04/18 09:47 Dose: 0.4 mg 83 year old gentleman with hx of CKD stage 4 (baseline Cr ~3.3) , Hypertension, DM, ? CHF who was sent into the ER for CHF exacerbation/fluid overload with Cr of 3.9. #CKD stage 4 (baseline Cr 3.3) w/o nephrotic range proteinuria #Fluid overload/CHF exacerbation #Hypertension #BPH Renal function stable Continue IV lasix for now, plan to transition to oral Lasix when ready for discharge pt did not respond well to torsemide prior to this admission Trend renal function and daily weights Thank you Christopher Denise DO
--- NOTE | 2018-11-04 13:30 | PN ---
Physical Exam: SUBJECTIVE: Patient seen and examined at bedside. No acute events overnight. Denies chest pain or shortness of breath. Sitting in chair eating. OBJECTIVE: Vital Signs Period Temp Pulse Resp BP Sys/Ware Pulse Ox Last 24 Hr 97.5 F-98.2 F 73-77 20-22 116-152/76-98 94-94 GENERAL: Alert Oriented no acute distress EYES: extraocular movements intact, sclera anicteric, conjunctiva clear. NECK: + JVD. Supple LUNGS: Expiratory rhonchi throughout. HEART: RRR S1S2 ABDOMEN: NDNT. EXTREMITIES: Venous stasis b/l. SKIN: Venous stasis b/l lower extremities Laboratory Results - last 24 hr 11/03/18 11/04/18 11/04/18 12:30 05:20 05:20 WBC 4.7 RBC 3.84 L Hgb 10.5 L Hct 31.9 L MCV 83.1 MCH 27.5 MCHC 33.0 RDW 19.4 H Plt Count 203 MPV 9.1 Sodium 140 Potassium 3.7 Chloride 106 Carbon Dioxide 28 Anion Gap 7 L BUN 34 H Creatinine 3.7 H Creat Clearance w eGFR 15.85 Random Glucose 74 Calcium 8.1 L Phosphorus 3.9 Magnesium 2.2 U Random Total Protein 229.7 H Urine Creatinine 56.0 Active Medications Generic Name Dose Route Start Last Admin Trade Name Freq PRN Reason Stop Dose Admin Albuterol/Ipratropium 1 amp 11/01/18 20:00 11/04/18 07:49 Duoneb - NEB 1 amp RBID [facility] Administration Amlodipine Besylate 5 mg 11/02/18 10:15 11/04/18 09:46 Norvasc - PO 5 mg DAILY [facility] Administration Atorvastatin Calcium 10 mg 11/01/18 22:00 11/03/18 21:40 Lipitor - PO 10 mg HS [facility] Administration Ferrous Sulfate 325 mg 11/01/18 22:00 11/04/18 06:10 Feosol - PO 325 mg TID [facility] Administration Furosemide 60 mg 11/02/18 06:00 11/04/18 06:10 Lasix Injection - IVPUSH 60 mg BID@0600,1400 [facility] Administration Heparin Sodium (Porcine) 5,000 unit 11/01/18 15:44 11/04/18 06:10 Heparin - SQ 5,000 unit TID [facility] Administration Isosorbide Mononitrate 120 mg 11/02/18 10:00 11/04/18 09:46 Imdur - PO 120 mg DAILY [facility] Administration Metoprolol Succinate 75 mg 11/04/18 11:07 Toprol Xl - PO DAILY [facility] Nystatin 1 applic 11/02/18 10:00 11/04/18 09:48 Nystop Powder - TP 1 applic DAILY [facility] Administration Polyethylene Glycol 17 gm 11/03/18 13:45 11/04/18 09:47 Miralax (For Daily Use) - PO Not Given DAILY [facility] Sodium Bicarbonate 650 mg 11/01/18 14:15 11/04/18 09:46 Sodium Bicarbonate - PO 650 mg DAILY [facility] Administration Tamsulosin HCl 0.4 mg 11/01/18 14:15 11/04/18 09:47 Flomax - PO 0.4 mg DAILY [facility] Administration ASSESSMENT/PLAN: Pt is an 83 yo M with PMHx of HTN, CHF, CKD presenting with worsening SOB, weakness and leg swelling over the past month. Pt has dyspnea on exertion, orthopnea, PND and eventually had dyspnea even at rest. 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 Suggestive of infiltrative amyloid cardiomyopathy. borderline nl left ventricular systolic function. Moderate concentric left ventricular hypertrophy. mild pulm hypertension. severely elevated left atrial pressure. Spoke with Cardiology this evening. Previous medical records reviewed. Please see Insurance Marketing Specialist's most recent note. -Cardio consult- Dr Sun on board -iv furosemide 60mg bid -Strict ins and outs -Daily weights -Fluid restriction - isosorbide -metoprolol 75 po daily Prolonged QTC- monitor lytes avoid QTC prolonging drugs Oxygen therapy as needed # HTN - Metoprolol 75 po daily - Norvasc 5 Daily # HLD Lipitor 40mg daily # CKD Pt with proteinuria Cr- 3.9 Lasix 60mg bid Avoid nephrotoxic meds Strict ins and outs Fluid restriction -Dr Denise on board--> check urine studies for FeUrea, UPCR - pending Renal US noted. #BPH Tamsulosin 0.4mg daily #FEN No standing fluids Monitor lytes Sodium restricted diet, renal diet, cholesterol free PPx Heparin SQ TID #Dispo Tele Visit type - Emergency Visit Emergency Visit: Yes ED Registration Date: 11/01/18 Care time: The patient presented to the Emergency Department on the above date and was hospitalized for further evaluation of their emergent condition. - New Patient This patient is new to me today: No - Critical Care Critical Care patient: No - Discharge Referral Referred to [facility] Med P.C.: No
--- NOTE | 2018-11-04 15:49 | ECHO ---
Name: NIKKI COLLADO Exam:Adult Echocardiogram Study Date: 11/04/2018 11:07 AM Age: 83 yrs Reason For Study: CHF,SOB Height: 67 in Weight: 214 lb BSA: 2.1 m2 MMode/2D Measurements & Calculations IVSd: 1.3 cm Ao root diam: 4.1 cm LVIDd: 4.0 cm LA dimension: 4.5 cm LVIDs: 2.8 cm ACS: 1.6 cm LVPWd: 1.8 cm IVSs: 1.6 cm LVPWs: 2.0 cm EDV(Luis Eduardo): 68.9 ml ESV(Luis Eduardo): 29.4 ml LAV(MOD-sp2): 65.7 ml LAV(MOD-sp4): 47.0 ml LAV(MOD-bp): 63.0 ml LAV(MOD-bp) Indexed: 30.3 ml/m2 Doppler Measurements & Calculations MV E max alvino: 138.9 cm/sec Ao V2 max: 102.1 cm/sec MV A max alvino: 42.9 cm/sec Ao max P.2 mmHg MV E/A: 3.2 Ao V2 mean: 71.4 cm/sec MV dec time: 0.08 sec Ao mean P.4 mmHg Ao V2 VTI: 18.6 cm MR max alvino: 399.1 cm/sec TR max alvino: 295.8 cm/sec MR max P.1 mmHg TR max P.0 mmHg PI end-d alvino: 157.5 cm/sec Med Peak E' Alvino: 3.0 cm/sec Med E/e': 46.0 Lat Peak E' Alvino: 4.2 cm/sec Lat E/e': 33.1 Procedure The study was technically adequate with some images being suboptimal in quality. Left Ventricle There is moderate concentric left ventricular hypertrophy. Ejection Fraction = 50%. Borderline normal LV systolic function. Mitral flow pattern suggests severely elevated LA pressure. Right Ventricle There is moderate right ventricular hypertrophy. The right ventricular systolic function is normal. Atria The left atrium is mildly dilated. The right atrium is moderately dilated. Mitral Valve There is mild to moderate mitral valve thickening. There is mild mitral regurgitation. Tricuspid Valve The tricuspid valve is normal in structure and function. There is mild tricuspid regurgitation. Right ventricular systolic pressure is elevated at 45 mmhg. Assuming the RA pressure is 10 mmHg. There is m ild pulmonary hypertension. Aortic Valve There is moderate aortic valve thickening. The aortic valve is trileaflet. Pulmonic Valve The pulmonic valve is not well visualized. Great Vessels The aortic root is normal size. Pericardium/Pleura Small pericardial effusion (<1cm). There are no echocardiographic indications of cardiac tamponade. 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 Borderline normal LV systolic function. There is moderate concentric left ventricular hypertrophy. Mitral flow pattern suggests severely elevated LA pressure. There is moderate right ventricular hypertrophy. The right ventricular systolic function is normal. There is mild pulmonary hypertension. Jarrod Ng 11/04/2018 03:49 PM
--- NOTE | 2018-11-04 17:56 | PN ---
Teaching Attending Note Name of Resident: Elia Iqbal ATTENDING PHYSICIAN STATEMENT I saw and evaluated the patient. I reviewed the resident's note and discussed the case with the resident. I agree with the resident's findings and plan as documented. SUBJECTIVE: No fever or chills. No abd pain. breathins is getting better every day OBJECTIVE: NAD. CV: RRR, No MRG, + JVD. Lungs: mild crackles at L base . No wheezes today Abd: obese, soft, NT, ND , NL BS Ext: 1+ edema, thick , hyperpigmented skin. ASSESSMENT AND PLAN: 83 y/o man with h/o CKD, and HTN, and BPH who presented with worsening SOb and LE edema. 1- Acute diastolic CHF: improved with diuresis - weight is improving. and sx have improved . - echo with LVH and RVH. pulmonary HTN, and severely elevated L atrial pressure - cont lasix 60 BID - will try to compare with out side echo - appreciate card help. 2- GENNARO on CKD : likely prerenal in setting of Acute CHF . has nephrotic range proteinurea. - renal US reviewed. - cont diuresis - Not sure if renal Bx was done as out pt , or if it is planned as out pt. 3- H/o HTN: cont BB and nitrate and Norvasc 4- Tinea Pedis : use nystatin topically DVT PX: heparin
--- NOTE | 2018-11-04 18:41 | CON.CARD ---
Cardiology Consult (text) - Consultation Consultation Note: Review office records cardiac data as below: ECHO- 05/10- Normal left ventricular size and function.2) Normal right ventricular size and function.3) Small pericardial effusion.4) Mild mitral regurgitation5) Mildly dilated ascending aorta (3.9cm)6) Mild MAC7) Thickened aortic valve8) Restrictive diastolic filling pattern consistent with elevated left atrial pressures.9) Insufficient tricuspid regurgitation to measure pulmonary artery pressures.11/10- low nml lv fxn, lvh, asc aorta 3.- 1. Technically difficult study.2. Overall low normal left ventricular systolic function.3. Moderate MAC.4. Mildly dilated ascending aorta (3.8 cm). 5. Mild mitral regurgitation.6. Insufficient TR to measure pulmonary artery pressures. STRESS- 12/07- persantine, no ischemia, lvef 55%, brief st vs svt with persantine - self terminated Right heart CATH- 07/10- RHC- pcwp 33, lg v waves, pa sat 53%, ai ci 2.0, post ntg- pap dropped to 53/18, pcwp dropped to 13
[2018-11-04] MEDS: ATORVASTATIN CA 10 MG TABLET (FP) PO SCH (21:44)
[2018-11-05] MEDS: FUROSEMIDE 40 MG/4 ML INJECTABLE VIAL IVPUSH SCH ×2 (06:39→14:09)
[2018-11-05] MEDS: HEPARIN NA (PORCINE) 5,000 UNITS/ML 1ML VIAL SQ SCH (06:39)
[2018-11-05] MEDS: FERROUS SO4 325 MG TABLET (FP) PO SCH ×3 (06:39→21:46)
[2018-11-05 06:45] LABS: HEMOGLOBIN 10.8 GM/dL (11.7-16.9); MCH 27.4 pg (25.7-33.7); MCHC 32.6 g/dl (32.0-35.9); MEAN CELL VOLUME 83.9 fl (80-96); MEAN PLT VOLUME 9.3 fl (7.5-11.1); PLATELET COUNT 211 K/MM3 (134-434); RBC 3.94 M/mm3 (4.00-5.60); RDW 19.4 % (11.9-15.9)
[2018-11-05 07:34] LABS: ANION GAP 9 MMOL/L (8-16); BLOOD UREA NITROGEN 35 mg/dL (7-18); CALCIUM 8.9 mg/dL (8.5-10.1); CHLORIDE 106 mmol/L (98-107); CO2 26 mmol/L (21-32); CREATININE 3.7 mg/dL (0.55-1.3); GLUCOSE,RANDOM 78 mg/dL (74-106); MAGNESIUM 2.2 mg/dL (1.8-2.4); POTASSIUM 3.7 mmol/L (3.5-5.1); SODIUM 142 mmol/L (136-145)
[2018-11-05] MEDS: ALBUTEROL SO4 2.5/IPRATROPIUM 0.5 INH SOL 3 ML VIAL.NEB. NEB SCH ×2 (08:24→20:38)
--- NOTE | 2018-11-05 09:05 | PN ---
Progress Note, Physician Chief Complaint: TELE reviewed: Around 4am run of rapid, irregular tachycardia c/w AF w/ aberrancy - Current Medication List Current Medications: Active Medications Albuterol/Ipratropium (Duoneb -) 1 amp NEB RBID [facility] Last Admin: 11/05/18 08:24 Dose: 1 amp Amlodipine Besylate (Norvasc -) 5 mg PO DAILY [facility] Last Admin: 11/04/18 09:46 Dose: 5 mg Atorvastatin Calcium (Lipitor -) 10 mg PO HS [facility] Last Admin: 11/04/18 21:44 Dose: 10 mg Ferrous Sulfate (Feosol -) 325 mg PO TID [facility] Last Admin: 11/05/18 06:39 Dose: 325 mg Furosemide (Lasix Injection -) 60 mg IVPUSH BID@0600,1400 [facility] Last Admin: 11/05/18 06:39 Dose: 60 mg Heparin Sodium (Porcine) (Heparin -) 5,000 unit SQ TID [facility] Last Admin: 11/05/18 06:39 Dose: 5,000 unit Isosorbide Mononitrate (Imdur -) 120 mg PO DAILY [facility] Last Admin: 11/04/18 09:46 Dose: 120 mg Metoprolol Succinate (Toprol Xl -) 50 mg PO DAILY [facility] Nystatin (Nystop Powder -) 1 applic TP DAILY [facility] Last Admin: 11/04/18 09:48 Dose: 1 applic Polyethylene Glycol (Miralax (For Daily Use) -) 17 gm PO DAILY [facility] Last Admin: 11/04/18 09:47 Dose: Not Given Sodium Bicarbonate (Sodium Bicarbonate -) 650 mg PO DAILY [facility] Last Admin: 11/04/18 09:46 Dose: 650 mg Tamsulosin HCl (Flomax -) 0.4 mg PO DAILY [facility] Last Admin: 11/04/18 09:47 Dose: 0.4 mg - Objective Vital Signs: Vital Signs Temperature 97.9 F 11/05/18 05:45 Pulse Rate 100 H 11/05/18 05:45 Respiratory Rate 20 11/05/18 05:45 Blood Pressure 138/94 11/05/18 05:45 O2 Sat by Pulse Oximetry (%) 97 11/04/18 21:00 Constitutional: Yes: Calm Cardiovascular: Yes: Regular Rate and Rhythm Respiratory: Yes: CTA Bilaterally (slight decreased breath sounds at bases.) Gastrointestinal: Yes: Soft Edema: Yes Edema: LLE: 1+, RLE: 1+ Neurological: Yes: Alert, Oriented Labs: CBC, BMP 11/05/18 05:30 11/05/18 05:30 INR, PTT INR 1.34 (0.83-1.09) H 11/02/18 06:00 - ....Imaging EKG: Image Reviewed Assessment/Plan IMP: CKD Severe diastolic dysfx, restrictive filling pattern, chronic diastolic 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 Cont tele to assess AF burden and for adequacy rate control. 2. Elevated [id number] score, merits AC: Will start UFH gtts and keep PTT 50-70 ; d/c SQ Heparin 3. Continue IV Lasix with daily monitoring renal fx; Nephrology following. 4. To consider Renal Bx for dx possible Amyloid
[2018-11-05] MEDS ORDERED: HEPARIN NA (PORCINE) 5,000 UNITS/ML 1ML VIAL IVPUSH PRN (09:12)
[2018-11-05] MEDS: amLODIPine BESYLATE 5 MG TABLET (FP) PO SCH (09:31)
[2018-11-05] MEDS: SODIUM BICARBONATE 650 MG TABLET PO SCH (09:31)
[2018-11-05] MEDS: ISOSORBIDE MONONITRATE 60 MG TAB.SR.24H (FP) PO SCH (09:32)
[2018-11-05] MEDS: POLYETHYLENE GLYCOL 3350 119 GM BTL PO SCH (09:32)
[2018-11-05] MEDS: TAMSULOSIN HCL 0.4 MG CAP PO SCH (09:32)
--- NOTE | 2018-11-05 09:59 | PN ---
Physical Exam: SUBJECTIVE: Patient seen and examined OBJECTIVE: Vital Signs Period Temp Pulse Resp BP Sys/Ware Pulse Ox Last 24 Hr 97.3 F-98.6 F 74-100 20-20 113-146/65-94 97 GENERAL: The patient is awake, alert, and fully oriented, in no acute distress. HEAD: Normal with no signs of trauma. EYES: PERRL, extraocular movements intact, sclera anicteric, conjunctiva clear. No ptosis. ENT: Ears normal, nares patent, oropharynx clear without exudates, moist mucous membranes. NECK: Trachea midline, full range of motion, supple. LUNGS: Breath sounds equal, clear to auscultation bilaterally, no wheezes, no crackles, no accessory muscle use. HEART: Regular rate and rhythm, S1, S2 without murmur, rub or gallop. ABDOMEN: Soft, nontender, nondistended, normoactive bowel sounds, no guarding, no rebound, no hepatosplenomegaly, no masses. EXTREMITIES: 2+ pulses, warm, well-perfused, no edema. NEUROLOGICAL: Cranial nerves II through XII grossly intact. Normal speech, gait not observed. PSYCH: Normal mood, normal affect. SKIN: Warm, dry, normal turgor, no rashes or lesions noted Laboratory Results - last 24 hr 11/05/18 11/05/18 05:30 05:30 WBC 5.0 RBC 3.94 L Hgb 10.8 L Hct 33.0 L MCV 83.9 MCH 27.4 MCHC 32.6 RDW 19.4 H Plt Count 211 MPV 9.3 Sodium 142 Potassium 3.7 Chloride 106 Carbon Dioxide 26 Anion Gap 9 BUN 35 H Creatinine 3.7 H Creat Clearance w eGFR 15.85 Random Glucose 78 Calcium 8.9 Phosphorus 4.0 Magnesium 2.2 Active Medications Generic Name Dose Route Start Last Admin Trade Name Freq PRN Reason Stop Dose Admin Albuterol/Ipratropium 1 amp 11/01/18 20:00 11/05/18 08:24 Duoneb - NEB 1 amp RBID [facility] Administration Amlodipine Besylate 5 mg 11/02/18 10:15 11/05/18 09:31 Norvasc - PO 5 mg DAILY [facility] Administration Atorvastatin Calcium 10 mg 11/01/18 22:00 11/04/18 21:44 Lipitor - PO 10 mg HS [facility] Administration Ferrous Sulfate 325 mg 02/09/19 22:00 11/05/18 06:39 Feosol - PO 325 mg TID [facility] Administration Furosemide 60 mg 11/02/18 06:00 11/05/18 06:39 Lasix Injection - IVPUSH 60 mg BID@0600,1400 [facility] Administration Heparin Sodium (Porcine) 5,000 unit 11/05/18 09:12 Heparin - IVPUSH PRN PRN APTT Heparin Sodium (Porcine) 1,000 unit 11/05/18 09:12 Heparin - IVPUSH PRN PRN APTT Heparin Sodium (Porcine) 25, 500 mls @ 20 mls/hr 11/05/18 09:15 000 unit/ Sodium Chloride IV TITR [facility] Protocol 1,000 UNIT/HR Isosorbide Mononitrate 120 mg 11/02/18 10:00 11/05/18 09:32 Imdur - PO 120 mg DAILY [facility] Administration Metoprolol Succinate 50 mg 11/05/18 10:00 11/05/18 09:31 Toprol Xl - PO 50 mg DAILY [facility] Administration Nystatin 1 applic 11/02/18 10:00 11/04/18 09:48 Nystop Powder - TP 1 applic DAILY [facility] Administration Polyethylene Glycol 17 gm 11/03/18 13:45 11/05/18 09:32 Miralax (For Daily Use) - PO 17 grams DAILY [facility] Administration Sodium Bicarbonate 650 mg 11/01/18 14:15 11/05/18 09:31 Sodium Bicarbonate - PO 650 mg DAILY [facility] Administration Tamsulosin HCl 0.4 mg 11/01/18 14:15 11/05/18 09:32 Flomax - PO 0.4 mg DAILY [facility] Administration ASSESSMENT/PLAN:
[2018-11-05] MEDS: HEPARIN - 25,000 UNIT in SODIUM CHLORIDE 495 ML IV SCH (11:22)
--- NOTE | 2018-11-05 12:22 | PN ---
Progress Note (short form) - Note Progress Note: Renal follow up for GENNARO/CKD and fluid overload Pt seen and examined at the bedside feels better not at baseline yet still has some leg swelling making urine Vital Signs Temperature 97.7 F 11/05/18 10:00 Pulse Rate 102 H 11/05/18 10:00 Respiratory Rate 20 11/05/18 10:00 Blood Pressure 150/100 11/05/18 10:00 O2 Sat by Pulse Oximetry (%) 95 11/05/18 09:00 Intake & Output 11/02/18 11/03/18 11/04/18 11/05/18 23:59 23:59 23:59 23:59 Intake Total 260 40 140 Output Total 900 1100 1200 100 Balance -640 -1060 -1060 -100 Weight 97.885 kg 97.125 kg 95.708 kg 95.254 kg NAD RRR, No M/R CTA, dec BS soft NT/ND Obese Abd + edema in LE CBC, BMP 11/05/18 05:30 11/05/18 05:30 Current Medications Albuterol/Ipratropium (Duoneb -) 1 amp NEB RBID [facility] Last Admin: 11/05/18 08:24 Dose: 1 amp Amlodipine Besylate (Norvasc -) 5 mg PO DAILY [facility] Last Admin: 11/05/18 09:31 Dose: 5 mg Atorvastatin Calcium (Lipitor -) 10 mg PO HS [facility] Last Admin: 11/04/18 21:44 Dose: 10 mg Ferrous Sulfate (Feosol -) 325 mg PO TID [facility] Last Admin: 11/05/18 06:39 Dose: 325 mg Furosemide (Lasix Injection -) 60 mg IVPUSH BID@0600,1400 [facility] Last Admin: 11/05/18 06:39 Dose: 60 mg Heparin Sodium (Porcine) (Heparin -) 5,000 unit IVPUSH PRN PRN PRN Reason: APTT Heparin Sodium (Porcine) (Heparin -) 1,000 unit IVPUSH PRN PRN PRN Reason: APTT Heparin Sodium (Porcine) 25, (000 unit/ Sodium Chloride) 500 mls @ 20 mls/hr IV TITR [facility]; Protocol Last Admin: 11/05/18 11:22 Dose: 1,000 unit/hr, 20 mls/hr Isosorbide Mononitrate (Imdur -) 120 mg PO DAILY [facility] Last Admin: 11/05/18 09:32 Dose: 120 mg Metoprolol Succinate (Toprol Xl -) 50 mg PO DAILY [facility] Last Admin: 11/05/18 09:31 Dose: 50 mg Nystatin (Nystop Powder -) 1 applic TP DAILY [facility] Last Admin: 11/04/18 09:48 Dose: 1 applic Polyethylene Glycol (Miralax (For Daily Use) -) 17 gm PO DAILY [facility] Last Admin: 11/05/18 09:32 Dose: 17 grams Sodium Bicarbonate (Sodium Bicarbonate -) 650 mg PO DAILY [facility] Last Admin: 11/05/18 09:31 Dose: 650 mg Tamsulosin HCl (Flomax -) 0.4 mg PO DAILY [facility] Last Admin: 11/05/18 09:32 Dose: 0.4 mg 83 year old gentleman with hx of CKD stage 4 (baseline Cr ~3.3) , Hypertension, DM, ? CHF who was sent into the ER for CHF exacerbation/fluid overload with Cr of 3.9. #CKD stage 4 (baseline Cr 3.3) w/o nephrotic range proteinuria #Fluid overload/CHF exacerbation #Hypertension #BPH Renal function stable Continue IV Lasix for now check SPEP/UPEP given ECHO findings of restrictive cardiomyopathy consider heme consult Trend renal function and electrolytes if serologic studies suggestive of amyloidosis can consider outpatient renal biopsy Thank you Christopher Denise DO
[2018-11-05] MEDS: NYSTATIN POWDER 100,000 UNITS/GM - 15 GM TOPICAL POWDER TP SCH (14:08)
[2018-11-05] MEDS: HEPARIN NA (PORCINE) 5,000 UNITS/ML 1ML VIAL IVPUSH PRN (18:13)
[2018-11-05] MEDS: ATORVASTATIN CA 10 MG TABLET (FP) PO SCH (21:46)
--- NOTE | 2018-11-05 23:35 | PN ---
Progress Note, Physician History of Present Illness: No new complaints Pt had runs of afib last night - Current Medication List Current Medications: Active Medications Albuterol/Ipratropium (Duoneb -) 1 amp NEB RBID [facility] Last Admin: 11/05/18 20:38 Dose: 1 amp Amlodipine Besylate (Norvasc -) 5 mg PO DAILY [facility] Last Admin: 11/05/18 09:31 Dose: 5 mg Atorvastatin Calcium (Lipitor -) 10 mg PO HS [facility] Last Admin: 11/05/18 21:46 Dose: 10 mg Ferrous Sulfate (Feosol -) 325 mg PO TID [facility] Last Admin: 11/05/18 21:46 Dose: 325 mg Furosemide (Lasix Injection -) 60 mg IVPUSH BID@0600,1400 [facility] Last Admin: 11/05/18 14:09 Dose: 60 mg Heparin Sodium (Porcine) (Heparin -) 5,000 unit IVPUSH PRN PRN PRN Reason: APTT Heparin Sodium (Porcine) (Heparin -) 1,000 unit IVPUSH PRN PRN PRN Reason: APTT Last Admin: 11/05/18 18:13 Dose: 1,000 unit Heparin Sodium (Porcine) 25, (000 unit/ Sodium Chloride) 500 mls @ 20 mls/hr IV TITR [facility]; Protocol Last Titration: 11/05/18 18:13 Dose: 1,100 unit/hr, 22 mls/hr Isosorbide Mononitrate (Imdur -) 120 mg PO DAILY [facility] Last Admin: 11/05/18 09:32 Dose: 120 mg Metoprolol Succinate (Toprol Xl -) 50 mg PO DAILY [facility] Last Admin: 11/05/18 09:31 Dose: 50 mg Nystatin (Nystop Powder -) 1 applic TP DAILY [facility] Last Admin: 11/05/18 14:08 Dose: 1 applic Polyethylene Glycol (Miralax (For Daily Use) -) 17 gm PO DAILY [facility] Last Admin: 11/05/18 09:32 Dose: 17 grams Sodium Bicarbonate (Sodium Bicarbonate -) 650 mg PO DAILY [facility] Last Admin: 11/05/18 09:31 Dose: 650 mg Tamsulosin HCl (Flomax -) 0.4 mg PO DAILY [facility] Last Admin: 11/05/18 09:32 Dose: 0.4 mg - Objective Vital Signs: Vital Signs Temperature 97.5 F L 11/05/18 21:15 Pulse Rate 76 11/05/18 21:15 Respiratory Rate 20 11/05/18 21:15 Blood Pressure 137/87 11/05/18 21:15 O2 Sat by Pulse Oximetry (%) 95 11/05/18 20:39 Constitutional: Yes: Well Nourished Neck: Yes: WNL, Supple Cardiovascular: Yes: WNL, Regular Rate and Rhythm Respiratory: Yes: WNL, Regular, CTA Bilaterally Gastrointestinal: Yes: WNL, Normal Bowel Sounds, Soft Edema: LLE: Trace, RLE: Trace Labs: CBC, BMP 11/05/18 05:30 11/05/18 05:30 INR, PTT INR 1.34 (0.83-1.09) H 11/02/18 06:00 Problem List - Problems (1) Paroxysmal A-fib Assessment/Plan: Heart rate controlled Pt now on IV heparin Code(s): I48.0 - PAROXYSMAL ATRIAL FIBRILLATION (2) CHF (congestive heart failure) Code(s): I50.9 - HEART FAILURE, UNSPECIFIED Qualifiers: Heart failure type: unspecified Heart failure chronicity: acute on chronic Qualified Code(s): I50.9 - Heart failure, unspecified (3) Acute on chronic renal failure Assessment/Plan: As per renal W/U in progress follow labs ?Amyloidosis and will probably need renal bx as outpt Code(s): N17.9 - ACUTE KIDNEY FAILURE, UNSPECIFIED; N18.9 - CHRONIC KIDNEY DISEASE, UNSPECIFIED (4) Acute on chronic diastolic (congestive) heart failure Assessment/Plan: Cont IV lasix Monitor electrolytes Fluid overload Code(s): I50.33 - ACUTE ON CHRONIC DIASTOLIC (CONGESTIVE) HEART FAILURE (5) Restrictive cardiomyopathy Code(s): I42.5 - OTHER RESTRICTIVE CARDIOMYOPATHY (6) HTN (hypertension) Assessment/Plan: BP stable Cont norvasc/metoprolol/imdur Code(s): I10 - ESSENTIAL (PRIMARY) HYPERTENSION (7) HLD (hyperlipidemia) Assessment/Plan: Cont lipitor Code(s): E78.5 - HYPERLIPIDEMIA, UNSPECIFIED (8) Anemia Assessment/Plan: Due to chronic dz/renal dz/ Cont FeSo4 Monitor H/H Code(s): D64.9 - ANEMIA, UNSPECIFIED (9) BPH (benign prostatic hyperplasia) Assessment/Plan: Cont flomax Code(s): N40.0 - BENIGN PROSTATIC HYPERPLASIA WITHOUT LOWER URINRY TRACT SYMP
[2018-11-06] MEDS: HEPARIN - 25,000 UNIT in SODIUM CHLORIDE 495 ML IV SCH ×2 (00:57→09:29)
[2018-11-06] MEDS: HEPARIN NA (PORCINE) 5,000 UNITS/ML 1ML VIAL IVPUSH PRN (00:57)
[2018-11-06] MEDS: FERROUS SO4 325 MG TABLET (FP) PO SCH ×3 (05:49→21:19)
[2018-11-06] MEDS: FUROSEMIDE 40 MG/4 ML INJECTABLE VIAL IVPUSH SCH ×2 (05:49→13:58)
[2018-11-06 06:43] LABS: BASO % 1.2 % (0-2.0); EOS % 3.6 % (0-4.5); HEMATOCRIT 33.8 % (35.4-49); HEMOGLOBIN 11.1 GM/dL (11.7-16.9); LYMPH % 18.4 % (8-40); MCH 27.3 pg (25.7-33.7); MCHC 32.8 g/dl (32.0-35.9); MEAN CELL VOLUME 83.4 fl (80-96); MEAN PLT VOLUME 9.3 fl (7.5-11.1); MONO % 11.8 % (3.8-10.2); PLATELET COUNT 210 K/MM3 (134-434); RBC 4.05 M/mm3 (4.00-5.60); RDW 19.4 % (11.9-15.9); WHITE BLOOD COUNT 5.4 K/mm3 (4.0-10.0)
[2018-11-06 07:08] LABS: ANION GAP 9 MMOL/L (8-16); BLOOD UREA NITROGEN 35 mg/dL (7-18); CALCIUM 8.9 mg/dL (8.5-10.1); CHLORIDE 105 mmol/L (98-107); CO2 26 mmol/L (21-32); CREATININE 3.7 mg/dL (0.55-1.3); GLUCOSE,RANDOM 85 mg/dL (74-106); MAGNESIUM 2.1 mg/dL (1.8-2.4); POTASSIUM 3.9 mmol/L (3.5-5.1); SODIUM 140 mmol/L (136-145)
[2018-11-06] MEDS: ALBUTEROL SO4 2.5/IPRATROPIUM 0.5 INH SOL 3 ML VIAL.NEB. NEB SCH ×2 (07:46→20:35)
--- NOTE | 2018-11-06 08:58 | PN ---
Progress Note, Physician Chief Complaint: Weight is down from 217lb to 209lbs TELE: NSR, again a short run of PAF with aberrancy - Current Medication List Current Medications: Active Medications Albuterol/Ipratropium (Duoneb -) 1 amp NEB RBID [facility] Last Admin: 11/06/18 07:46 Dose: 1 amp Amlodipine Besylate (Norvasc -) 5 mg PO DAILY [facility] Last Admin: 11/05/18 09:31 Dose: 5 mg Atorvastatin Calcium (Lipitor -) 10 mg PO HS [facility] Last Admin: 11/05/18 21:46 Dose: 10 mg Ferrous Sulfate (Feosol -) 325 mg PO TID [facility] Last Admin: 11/06/18 05:49 Dose: 325 mg Furosemide (Lasix Injection -) 60 mg IVPUSH BID@0600,1400 [facility] Last Admin: 11/06/18 05:49 Dose: 60 mg Heparin Sodium (Porcine) (Heparin -) 5,000 unit IVPUSH PRN PRN PRN Reason: APTT Heparin Sodium (Porcine) (Heparin -) 1,000 unit IVPUSH PRN PRN PRN Reason: APTT Last Admin: 11/06/18 00:57 Dose: 1,000 unit Heparin Sodium (Porcine) 25, (000 unit/ Sodium Chloride) 500 mls @ 20 mls/hr IV TITR [facility]; Protocol Last Admin: 11/06/18 00:57 Dose: 1,200 unit/hr, 24 mls/hr Isosorbide Mononitrate (Imdur -) 120 mg PO DAILY [facility] Last Admin: 11/05/18 09:32 Dose: 120 mg Metoprolol Succinate (Toprol Xl -) 50 mg PO DAILY [facility] Last Admin: 11/05/18 09:31 Dose: 50 mg Nystatin (Nystop Powder -) 1 applic TP DAILY [facility] Last Admin: 11/05/18 14:08 Dose: 1 applic Polyethylene Glycol (Miralax (For Daily Use) -) 17 gm PO DAILY [facility] Last Admin: 11/05/18 09:32 Dose: 17 grams Sodium Bicarbonate (Sodium Bicarbonate -) 650 mg PO DAILY [facility] Last Admin: 11/05/18 09:31 Dose: 650 mg Tamsulosin HCl (Flomax -) 0.4 mg PO DAILY [facility] Last Admin: 11/05/18 09:32 Dose: 0.4 mg - Objective Vital Signs: Vital Signs Temperature 98 F 11/06/18 08:00 Pulse Rate 106 H 11/06/18 08:00 Respiratory Rate 20 11/06/18 08:00 Blood Pressure 142/96 11/06/18 08:00 O2 Sat by Pulse Oximetry (%) 95 11/06/18 07:54 Constitutional: Yes: No Distress, Calm Eyes: Yes: Conjunctiva Clear, EOM Intact Cardiovascular: Yes: Regular Rate and Rhythm Respiratory: Yes: CTA Bilaterally (no rales) Gastrointestinal: Yes: Soft Edema: Yes Edema: LLE: 1+, RLE: 1+ Neurological: Yes: Alert, Oriented ...Motor Strength: WNL Labs: CBC, BMP 11/06/18 05:30 11/06/18 05:30 INR, PTT INR 1.34 (0.83-1.09) H 11/02/18 06:00 Laboratory Tests 11/01/18 11/02/18 11/02/18 09:43 00:30 06:00 WBC 5.1 Hgb 11.7 Hct 35.3 L Plt Count 207 PTT (Actin FS) Sodium Potassium BUN Creatinine Magnesium Troponin I 0.05 0.06 H B-Natriuretic Peptide 45256.7 H 11/02/18 11/04/18 11/04/18 06:00 05:20 05:20 WBC 4.7 Hgb 10.5 L Hct Plt Count 203 PTT (Actin FS) Sodium 145 140 Potassium 4.0 3.7 BUN 37 H 34 H Creatinine 3.9 H 3.7 H Magnesium 2.2 Troponin I B-Natriuretic Peptide 11/05/18 11/05/18 11/06/18 05:30 05:30 05:30 WBC 5.0 5.4 Hgb 10.8 L 11.1 L Hct Plt Count 211 210 PTT (Actin FS) Sodium 142 Potassium 3.7 BUN 35 H Creatinine 3.7 H Magnesium Troponin I B-Natriuretic Peptide 11/06/18 11/06/18 05:30 05:30 WBC Hgb Hct Plt Count PTT (Actin FS) 55.0 H Sodium 140 Potassium 3.9 BUN 35 H Creatinine 3.7 H Magnesium 2.1 Troponin I B-Natriuretic Peptide - ....Imaging EKG: Image Reviewed Assessment/Plan IMP: CKD Severe diastolic dysfx, restrictive filling pattern, chronic diastolic 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 Cont tele to assess AF burden and for adequacy rate control. 2. Elevated [id number] score, merits AC: Will start UFH gtts and keep PTT 50-70 ; intermediate plan will likely be to use Eliquis 2.5 mg BID 3. Continue IV Lasix with daily monitoring renal fx; Nephrology following. Favor switching to PO Torsemide prior to d/c 4. To consider Renal Bx for dx possible Amyloid
[2018-11-06] MEDS: ISOSORBIDE MONONITRATE 60 MG TAB.SR.24H (FP) PO SCH (09:27)
[2018-11-06] MEDS: TAMSULOSIN HCL 0.4 MG CAP PO SCH (09:27)
[2018-11-06] MEDS: SODIUM BICARBONATE 650 MG TABLET PO SCH (09:27)
[2018-11-06] MEDS: NYSTATIN POWDER 100,000 UNITS/GM - 15 GM TOPICAL POWDER TP SCH (09:28)
[2018-11-06] MEDS: amLODIPine BESYLATE 5 MG TABLET (FP) PO SCH (09:28)
[2018-11-06] MEDS: POLYETHYLENE GLYCOL 3350 119 GM BTL PO SCH (11:00)
[2018-11-06] MEDS ORDERED: PT OWN MED DRAWER 7, Y5N ONE (12:00)
--- NOTE | 2018-11-06 15:15 | PN ---
Progress Note (short form) - Note Progress Note: Renal follow up for GENNARO/CKD and fluid overload Pt seen and examined at the bedside no acute complaints feels better making urine leg edema improved Vital Signs Temperature 98.4 F 11/06/18 14:00 Pulse Rate 69 11/06/18 14:00 Respiratory Rate 20 11/06/18 14:00 Blood Pressure 129/83 11/06/18 14:00 O2 Sat by Pulse Oximetry (%) 95 11/06/18 07:54 Intake & Output 11/03/18 11/04/18 11/05/18 11/06/18 23:59 23:59 23:59 23:59 Intake Total 40 140 390 498 Output Total 1100 1200 2650 900 Balance -1060 -1060 -2260 -402 Weight 97.125 kg 95.708 kg 95.254 kg 95.164 kg NAD RRR, No M/R CTA, dec BS soft NT/ND Obese Abd + edema in LE CBC, BMP 11/06/18 05:30 11/06/18 05:30 Current Medications Albuterol/Ipratropium (Duoneb -) 1 amp NEB RBID [facility] Last Admin: 11/06/18 07:46 Dose: 1 amp Amlodipine Besylate (Norvasc -) 5 mg PO DAILY [facility] Last Admin: 11/06/18 09:28 Dose: 5 mg Atorvastatin Calcium (Lipitor -) 10 mg PO HS [facility] Last Admin: 11/05/18 21:46 Dose: 10 mg Ferrous Sulfate (Feosol -) 325 mg PO TID [facility] Last Admin: 11/06/18 13:57 Dose: 325 mg Furosemide (Lasix Injection -) 60 mg IVPUSH BID@0600,1400 [facility] [place] Last Admin: 11/06/18 13:58 Dose: 60 mg Heparin Sodium (Porcine) (Heparin -) 5,000 unit IVPUSH PRN PRN PRN Reason: APTT Heparin Sodium (Porcine) (Heparin -) 1,000 unit IVPUSH PRN PRN PRN Reason: APTT Last Admin: 11/06/18 00:57 Dose: 1,000 unit Heparin Sodium (Porcine) 25, (000 unit/ Sodium Chloride) 500 mls @ 20 mls/hr IV TITR [facility]; Protocol Last Admin: 11/06/18 09:29 Dose: 1,200 unit/hr, 24 mls/hr Isosorbide Mononitrate (Imdur -) 120 mg PO DAILY [facility] [place] Last Admin: 11/06/18 09:27 Dose: 120 mg Metoprolol Succinate (Toprol Xl -) 50 mg PO DAILY [facility] Last Admin: 11/06/18 09:27 Dose: 50 mg Nystatin (Nystop Powder -) 1 applic TP DAILY [facility] Last Admin: 11/06/18 09:28 Dose: 1 applic Polyethylene Glycol (Miralax (For Daily Use) -) 17 gm PO DAILY [facility] Last Admin: 11/06/18 11:00 Dose: Not Given Sodium Bicarbonate (Sodium Bicarbonate -) 650 mg PO DAILY [facility] [place] Last Admin: 11/06/18 09:27 Dose: 650 mg Tamsulosin HCl (Flomax -) 0.4 mg PO DAILY [facility] Last Admin: 11/06/18 09:27 Dose: 0.4 mg 83 year old gentleman with hx of CKD stage 4 (baseline Cr ~3.3) , Hypertension, DM, ? CHF who was sent into the ER for CHF exacerbation/fluid overload with Cr of 3.9. #CKD stage 4 (baseline Cr 3.3) w/o nephrotic range proteinuria #Fluid overload/CHF exacerbation #Hypertension #BPH Renal function stable Continue IV Lasix for now with plan to transition to oral diuretics tomorrow check SPEP/UPEP given ECHO findings of restrictive cardiomyopathy Trend renal function and electrolytes if serologic studies suggestive of amyloidosis can consider outpatient renal biopsy Thank you Christopher Denise DO
[2018-11-06] MEDS: ATORVASTATIN CA 10 MG TABLET (FP) PO SCH (21:19)
--- NOTE | 2018-11-06 23:14 | PN ---
Progress Note, Physician - Current Medication List Current Medications: Active Medications Albuterol/Ipratropium (Duoneb -) 1 amp NEB RBID [facility] Last Admin: 11/06/18 20:35 Dose: 1 amp Amlodipine Besylate (Norvasc -) 5 mg PO DAILY [facility] Last Admin: 11/06/18 09:28 Dose: 5 mg Atorvastatin Calcium (Lipitor -) 10 mg PO HS [facility] Last Admin: 11/06/18 21:19 Dose: 10 mg Ferrous Sulfate (Feosol -) 325 mg PO TID [facility] Last Admin: 11/06/18 21:19 Dose: 325 mg Furosemide (Lasix Injection -) 60 mg IVPUSH BID@0600,1400 [facility] Last Admin: 11/06/18 13:58 Dose: 60 mg Heparin Sodium (Porcine) (Heparin -) 5,000 unit IVPUSH PRN PRN PRN Reason: APTT Heparin Sodium (Porcine) (Heparin -) 1,000 unit IVPUSH PRN PRN PRN Reason: APTT Last Admin: 11/06/18 00:57 Dose: 1,000 unit Heparin Sodium (Porcine) 25, (000 unit/ Sodium Chloride) 500 mls @ 20 mls/hr IV TITR [facility]; Protocol Last Admin: 11/06/18 09:29 Dose: 1,200 unit/hr, 24 mls/hr Isosorbide Mononitrate (Imdur -) 120 mg PO DAILY [facility] Last Admin: 11/06/18 09:27 Dose: 120 mg Metoprolol Succinate (Toprol Xl -) 50 mg PO DAILY [facility] Last Admin: 11/06/18 09:27 Dose: 50 mg Nystatin (Nystop Powder -) 1 applic TP DAILY [facility] Last Admin: 11/06/18 09:28 Dose: 1 applic Polyethylene Glycol (Miralax (For Daily Use) -) 17 gm PO DAILY [facility] Last Admin: 11/06/18 11:00 Dose: Not Given Sodium Bicarbonate (Sodium Bicarbonate -) 650 mg PO DAILY [facility] Last Admin: 11/06/18 09:27 Dose: 650 mg Tamsulosin HCl (Flomax -) 0.4 mg PO DAILY [facility] Last Admin: 11/06/18 09:27 Dose: 0.4 mg - Objective Vital Signs: Vital Signs Temperature 97.2 F L 11/06/18 20:25 Pulse Rate 69 11/06/18 20:25 Respiratory Rate 18 02/14/19 20:25 Blood Pressure 135/81 11/06/18 20:25 O2 Sat by Pulse Oximetry (%) 96 11/06/18 20:20 Labs: CBC, BMP 11/06/18 05:30 11/06/18 05:30 INR, PTT INR 1.34 (0.83-1.09) H 11/02/18 06:00 Problem List - Problems (1) Paroxysmal A-fib Code(s): I48.0 - PAROXYSMAL ATRIAL FIBRILLATION (2) CHF (congestive heart failure) Code(s): I50.9 - HEART FAILURE, UNSPECIFIED Qualifiers: Heart failure type: unspecified Heart failure chronicity: acute on chronic Qualified Code(s): I50.9 - Heart failure, unspecified (3) Acute on chronic renal failure Code(s): N17.9 - ACUTE KIDNEY FAILURE, UNSPECIFIED; N18.9 - CHRONIC KIDNEY DISEASE, UNSPECIFIED (4) Acute on chronic diastolic (congestive) heart failure Code(s): I50.33 - ACUTE ON CHRONIC DIASTOLIC (CONGESTIVE) HEART FAILURE (5) Restrictive cardiomyopathy Code(s): I42.5 - OTHER RESTRICTIVE CARDIOMYOPATHY (6) HTN (hypertension) Code(s): I10 - ESSENTIAL (PRIMARY) HYPERTENSION (7) HLD (hyperlipidemia) Code(s): E78.5 - HYPERLIPIDEMIA, UNSPECIFIED (8) Anemia Code(s): D64.9 - ANEMIA, UNSPECIFIED (9) BPH (benign prostatic hyperplasia) Code(s): N40.0 - BENIGN PROSTATIC HYPERPLASIA WITHOUT LOWER URINRY TRACT SYMP
[2018-11-07 05:14] LABS: KAPPA/LAMBDA RATIO, UR 4.32 (2.04-10.37)
[2018-11-07] MEDS: FERROUS SO4 325 MG TABLET (FP) PO SCH ×2 (06:05→14:38)
[2018-11-07] MEDS: FUROSEMIDE 40 MG/4 ML INJECTABLE VIAL IVPUSH SCH (06:05)
[2018-11-07 07:29] LABS: HEMATOCRIT 33.8 % (35.4-49); HEMOGLOBIN 11.1 GM/dL (11.7-16.9); MCH 27.3 pg (25.7-33.7); MCHC 32.8 g/dl (32.0-35.9); MEAN CELL VOLUME 83.3 fl (80-96); MEAN PLT VOLUME 9.1 fl (7.5-11.1); PLATELET COUNT 199 K/MM3 (134-434); RBC 4.06 M/mm3 (4.00-5.60); RDW 19.7 % (11.9-15.9); WHITE BLOOD COUNT 5.3 K/mm3 (4.0-10.0)
[2018-11-07] MEDS: ALBUTEROL SO4 2.5/IPRATROPIUM 0.5 INH SOL 3 ML VIAL.NEB. NEB SCH (07:43)
[2018-11-07 08:15] LABS: ANION GAP 8 MMOL/L (8-16); BLOOD UREA NITROGEN 34 mg/dL (7-18); CALCIUM 8.7 mg/dL (8.5-10.1); CHLORIDE 104 mmol/L (98-107); CO2 27 mmol/L (21-32); CREATININE 3.7 mg/dL (0.55-1.3); GLUCOSE,RANDOM 79 mg/dL (74-106); MAGNESIUM 2.6 mg/dL (1.8-2.4); SODIUM 138 mmol/L (136-145)
--- NOTE | 2018-11-07 09:40 | PN ---
Progress Note, Physician Chief Complaint: down to 208lbs Feels less SOB Tolerated UFH gtts well without issue - Current Medication List Current Medications: Active Medications Albuterol/Ipratropium (Duoneb -) 1 amp NEB RBID [facility] Last Admin: 11/07/18 07:43 Dose: 1 amp Amlodipine Besylate (Norvasc -) 5 mg PO DAILY [facility] Last Admin: 11/06/18 09:28 Dose: 5 mg Atorvastatin Calcium (Lipitor -) 10 mg PO HS [facility] Last Admin: 11/06/18 21:19 Dose: 10 mg Ferrous Sulfate (Feosol -) 325 mg PO TID [facility] Last Admin: 11/07/18 06:05 Dose: 325 mg Furosemide (Lasix Injection -) 60 mg IVPUSH BID@0600,1400 [facility] Last Admin: 11/07/18 06:05 Dose: 60 mg Heparin Sodium (Porcine) (Heparin -) 5,000 unit IVPUSH PRN PRN PRN Reason: APTT Heparin Sodium (Porcine) (Heparin -) 1,000 unit IVPUSH PRN PRN PRN Reason: APTT Last Admin: 11/06/18 00:57 Dose: 1,000 unit Heparin Sodium (Porcine) 25, (000 unit/ Sodium Chloride) 500 mls @ 20 mls/hr IV TITR [facility]; Protocol Last Admin: 11/06/18 09:29 Dose: 1,200 unit/hr, 24 mls/hr Isosorbide Mononitrate (Imdur -) 120 mg PO DAILY [facility] Last Admin: 11/06/18 09:27 Dose: 120 mg Metoprolol Succinate (Toprol Xl -) 50 mg PO DAILY [facility] Last Admin: 11/06/18 09:27 Dose: 50 mg Nystatin (Nystop Powder -) 1 applic TP DAILY [facility] Last Admin: 11/06/18 09:28 Dose: 1 applic Polyethylene Glycol (Miralax (For Daily Use) -) 17 gm PO DAILY [facility] Last Admin: 11/06/18 11:00 Dose: Not Given Sodium Bicarbonate (Sodium Bicarbonate -) 650 mg PO DAILY [facility] Last Admin: 11/06/18 09:27 Dose: 650 mg Tamsulosin HCl (Flomax -) 0.4 mg PO DAILY [facility] Last Admin: 11/06/18 09:27 Dose: 0.4 mg - Objective Vital Signs: Vital Signs Temperature 98.0 F 11/07/18 06:00 Pulse Rate 74 11/07/18 06:00 Respiratory Rate 20 11/07/18 06:00 Blood Pressure 144/85 11/07/18 06:00 O2 Sat by Pulse Oximetry (%) 96 11/06/18 20:20 Constitutional: Yes: No Distress, Calm Cardiovascular: Yes: Regular Rate and Rhythm Respiratory: Yes: CTA Bilaterally (no rales or wheezing) Gastrointestinal: Yes: Soft Edema: Yes Edema: LLE: 1+, RLE: 1+ Neurological: Yes: Alert, Oriented ...Motor Strength: WNL Labs: CBC, BMP 11/07/18 05:45 11/07/18 05:45 INR, PTT INR 1.34 (0.83-1.09) H 11/02/18 06:00 Laboratory Tests 11/07/18 11/07/18 11/07/18 05:45 05:45 05:45 WBC 5.3 Hgb 11.1 L Plt Count 199 PTT (Actin FS) 49.9 H Potassium 4.0 Creatinine 3.7 H - ....Imaging EKG: Image Reviewed Assessment/Plan IMP: CKD Severe diastolic dysfx, restrictive filling pattern, chronic diastolic 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 Discontinue Telemetry 2. Elevated [id number] score, merits AC: Eliquis 2.5 mg BID 3. Switch to PO Lasix 4. To consider Renal Bx for dx possible Amyloid D/C Planning
[2018-11-07] MEDS ORDERED: APIXABAN 2.5 MG TABLET PO SCH (10:00)
[2018-11-07] MEDS: TAMSULOSIN HCL 0.4 MG CAP PO SCH (10:59)
[2018-11-07] MEDS: ISOSORBIDE MONONITRATE 60 MG TAB.SR.24H (FP) PO SCH (10:59)
[2018-11-07] MEDS: amLODIPine BESYLATE 5 MG TABLET (FP) PO SCH (10:59)
[2018-11-07] MEDS: SODIUM BICARBONATE 650 MG TABLET PO SCH (10:59)
[2018-11-07] MEDS: POLYETHYLENE GLYCOL 3350 119 GM BTL PO SCH (11:00)
[2018-11-07] MEDS: NYSTATIN POWDER 100,000 UNITS/GM - 15 GM TOPICAL POWDER TP SCH (11:03)
[2018-11-07] MEDS: HEPARIN - 25,000 UNIT in SODIUM CHLORIDE 495 ML IV SCH (13:10)
--- NOTE | 2018-11-07 13:44 | PN ---
Progress Note (short form) - Note Progress Note: Renal follow up for GENNARO/CKD and fluid overload Pt seen and examined at the bedside feels better, near baseline no sob, cp, abd pain leg edema improved Vital Signs Temperature 98.0 F 11/07/18 06:00 Pulse Rate 74 11/07/18 06:00 Respiratory Rate 20 11/07/18 06:00 Blood Pressure 144/85 11/07/18 06:00 O2 Sat by Pulse Oximetry (%) 96 11/06/18 20:20 Intake & Output 11/04/18 11/05/18 11/06/18 11/07/18 23:59 23:59 23:59 23:59 Intake Total 140 390 882 Output Total 1200 2650 2600 Balance -1060 -2260 -1718 Weight 95.708 kg 95.254 kg 95.164 kg 94.438 kg NAD RRR, No M/R CTA, dec BS soft NT/ND Obese Abd + edema in LE CBC, BMP 11/07/18 05:45 11/07/18 05:45 Current Medications Albuterol/Ipratropium (Duoneb -) 1 amp NEB RBID [facility] Last Admin: 11/07/18 07:43 Dose: 1 amp Amlodipine Besylate (Norvasc -) 5 mg PO DAILY [facility] Last Admin: 11/07/18 10:59 Dose: 5 mg Apixaban (Eliquis -) 2.5 mg PO BID [facility] Last Admin: 11/07/18 10:59 Dose: 2.5 mg Atorvastatin Calcium (Lipitor -) 10 mg PO HS [facility] Last Admin: 11/06/18 21:19 Dose: 10 mg Ferrous Sulfate (Feosol -) 325 mg PO TID [facility] Last Admin: 11/07/18 06:05 Dose: 325 mg Furosemide (Lasix -) 80 mg PO BID@0600,1400 [facility] Heparin Sodium (Porcine) 25, (000 unit/ Sodium Chloride) 500 mls @ 20 mls/hr IV TITR [facility]; Protocol Last Admin: 11/07/18 13:10 Dose: Not Given Isosorbide Mononitrate (Imdur -) 120 mg PO DAILY [facility] Last Admin: 11/07/18 10:59 Dose: 120 mg Metoprolol Succinate (Toprol Xl -) 50 mg PO DAILY [facility] Last Admin: 11/07/18 10:59 Dose: 50 mg Nystatin (Nystop Powder -) 1 applic TP DAILY [facility] Last Admin: 11/07/18 11:03 Dose: 1 applic Polyethylene Glycol (Miralax (For Daily Use) -) 17 gm PO DAILY [facility] Last Admin: 11/07/18 11:00 Dose: 17 grams Sodium Bicarbonate (Sodium Bicarbonate -) 650 mg PO DAILY [facility] Last Admin: 11/07/18 10:59 Dose: 650 mg Tamsulosin HCl (Flomax -) 0.4 mg PO DAILY [facility] Last Admin: 11/07/18 10:59 Dose: 0.4 mg 83 year old gentleman with hx of CKD stage 4 (baseline Cr ~3.3) , Hypertension, DM, ? CHF who was sent into the ER for CHF exacerbation/fluid overload with Cr of 3.9. #CKD stage 4 (baseline Cr 3.3) w/o nephrotic range proteinuria #Fluid overload/CHF exacerbation #Hypertension #BPH Renal function stable Continue Lasix 80mg BID Low salt diet SPEP results pending Trend renal function and electrolytes if serologic studies suggestive of amyloidosis can consider outpatient renal biopsy stable for discharge follow up in our office in 2 weeks Thank you Christopher Denise DO
[2018-11-07] MEDS ORDERED: FUROSEMIDE 40 MG TABLET (FP) PO SCH (14:00)
[2018-11-07 14:15] VITALS: BP 130/73; PULSE 79; TEMP 97.9
== END 2018-11-07 17:37 | disposition home health service (06) | DRG 291 ==
LOC: JER 08:52 → JERBED 11:03 → J4W 19:40
PROVIDERS: ADMIT Internal Medicine; ATTEND Internal Medicine
DX: I13.0 Hypertensive heart and chronic kidney disease with heart failure and stage 1 through stage 4 chronic kidney disease, or unspecified chronic kidney disease (principal); I50.33 Acute on chronic diastolic (congestive) heart failure; N18.4 Chronic kidney disease, stage 4 (severe); N17.9 Acute kidney failure, unspecified; I25.10 Atherosclerotic heart disease of native coronary artery without angina pectoris; I27.20 Pulmonary hypertension, unspecified; I48.0 Paroxysmal atrial fibrillation; E66.9 Obesity, unspecified; Z68.32 Body mass index [BMI] 32.0-32.9, adult; E78.5 Hyperlipidemia, unspecified; N40.0 Benign prostatic hyperplasia without lower urinary tract symptoms; E87.70 Fluid overload, unspecified; I42.5 Other restrictive cardiomyopathy; D64.9 Anemia, unspecified; B35.3 Tinea pedis
CPT/HCPCS: 36415; 71046-TC-FY; 76775-TC; 76856-TC; 80048; 80053; 81003; 81015; 82550; 82553; 82570; 82803; 83036; 83735; 83880; 83883; 84100; 84155; 84156; 84165; 84484; 85025; 85027; 85610; 85730; 93005; 93010; 93306-TC; 94640; 97116-GP; 97161-GP; 99285-25; J1644

== ENCOUNTER 2020-03-18 06:19 | Day surgery (SDC) | payer BC ==
[2020-03-18] MEDS ORDERED: HEPARIN NA (PORCINE) 5,000 UNITS/ML 1ML VIAL ONE (07:16)
[2020-03-18] MEDS ORDERED: LIDOCAINE HCL 1%, 10 MG/ML (20ML VIAL) ONE (07:16)
[2020-03-18] MEDS ORDERED: POVIDONE-IODINE OINTMENT 10% - 28.4 GM TUBE ONE (07:29)
[2020-03-18] MEDS ORDERED: EPHEDRINE SULFATE/0.9% NACL/PF 50 MG/10 ML SYRINGE NR ONE (07:34)
[2020-03-18] MEDS ORDERED: SUCCINYLCHOLINE CHLORIDE 200 MG/10 ML SYRINGE ONE (07:35)
[2020-03-18] MEDS ORDERED: MIDAZOLAM HCL 2 MG/2 ML SINGLE DOSE VIAL ONE ×2 (07:35→08:44)
[2020-03-18] MEDS ORDERED: PROPOFOL 20 ML ONE ×2 (07:35)
[2020-03-18] MEDS ORDERED: ROPIVACAINE HCL 0.5% 30ML VIAL ONE (07:53)
--- NOTE | 2020-03-18 08:15 | HP ---
Admitting History and Physical - Admission Chief Complaint: Pt with esrd. Here for avg insertion in right arm. History Source: Patient Limitations to Obtaining History: No Limitations - Past Medical History Cardiovascular: Yes: CAD, CHF, HTN, Hyperlipdemia Renal/: Yes: Renal Failure Heme/Onc: Yes: Anemia Musculoskeletal: Yes: Osteoarthritis (B/l knees) - Smoking History Smoking history: Never smoked Have you smoked in the past 12 months: No If you are a former smoker, when did you quit?: 3 yrs ago - Alcohol/Substance Use Hx Alcohol Use: No Home Medications - Allergies Allergies/Adverse Reactions: Allergies Allergy/AdvReac Type Severity Reaction Status Date / Time No Known Allergies Allergy Verified 02/19/20 08:21 - Home Medications Home Medications: Ambulatory Orders Ferrous Sulfate 325 mg PO BID 11/01/18 Isosorbide Mononitrate [Isosorbide Mononitrate ER] 120 mg PO DAILY 11/01/18 Metoprolol Succinate 25 mg PO DAILY 11/01/18 Pravastatin Sodium [Pravachol -] 40 mg PO HS 11/01/18 Tamsulosin HCl [Flomax -] 0.4 mg PO DAILY 11/01/18 Apixaban [Eliquis -] 2.5 mg PO BID tablet 02/23/20 Nifedipine ER [Procardia XL -] 90 mg PO DAILY 03/16/20 Review of Systems - Review of Systems Constitutional: reports: No Symptoms Eyes: reports: No Symptoms HENT: reports: No Symptoms Neck: reports: No Symptoms Cardiovascular: reports: No Symptoms Respiratory: reports: No Symptoms Gastrointestinal: reports: No Symptoms Genitourinary: reports: No Symptoms Breasts: reports: No Symptoms Reported Musculoskeletal: reports: No Symptoms Integumentary: reports: No Symptoms Neurological: reports: No Symptoms Endocrine: reports: No Symptoms Hematology/Lymphatic: reports: No Symptoms Psychiatric: reports: No Symptoms Physical Examination Vital Signs: Vital Signs Temperature 98.1 F 03/18/20 07:28 Pulse Rate 122 H 03/18/20 07:28 Respiratory Rate 18 03/18/20 07:28 Blood Pressure 110/67 03/18/20 07:28 O2 Sat by Pulse Oximetry (%) 100 03/18/20 07:30 Constitutional: Yes: Well Nourished, No Distress, Calm Eyes: Yes: WNL, Conjunctiva Clear, EOM Intact HENT: Yes: WNL, Atraumatic, Normocephalic Neck: Yes: WNL, Supple, Trachea Midline Cardiovascular: Yes: WNL, Regular Rate and Rhythm Respiratory: Yes: WNL, Regular, CTA Bilaterally Gastrointestinal: Yes: WNL, Normal Bowel Sounds Musculoskeletal: Yes: WNL Extremities: Yes: WNL Edema: No Peripheral Pulses WNL: Yes Integumentary: Yes: WNL Neurological: Yes: WNL, Alert, Oriented ...Motor Strength: WNL Psychiatric: Yes: WNL Labs: CBC, BMP 03/18/20 06:28 Problem List - Problems (1) ESRD (end stage renal disease) Assessment/Plan: for right avg insertion today. Adria Mccormick DO Problems reviewed: Yes Code(s): N18.6 - END STAGE RENAL DISEASE
[2020-03-18] MEDS: ceFAZolin SODIUM 1 GM VIAL IVPB ONE (08:53)
[2020-03-18] MEDS: LIDOCAINE HCL 1%, 10 MG/ML (20ML VIAL) INF ONE (09:05)
[2020-03-18] MEDS ORDERED: ROCURONIUM BROMIDE 50 MG/5 ML SYRINGE ONE (10:17)
--- NOTE | 2020-03-18 10:21 | OP ---
Operative Note - Note: Operative Date: 03/18/20 Pre-Operative Diagnosis: ESRD Operation: Creation of brachial -cephalic vein fistula right arm. Post-Operative Diagnosis: Same as Pre-op Surgeon: Adria Mccormick Anesthesia: Fractional Estimated Blood Loss (mls): 50 Operative Report Dictated: Yes
[2020-03-18] MEDS ORDERED: ONDANSETRON 4 MG/2 ML VIAL IVPUSH PRN (10:23)
[2020-03-18 12:04] VITALS: TEMP 97.8
[2020-03-18 12:35] VITALS: BP 134/74
[2020-03-18 13:23] VITALS: PULSE 99
--- NOTE | 2020-03-18 14:50 | EKG ---
Test Reason : Blood Pressure : / mmHG Vent. Rate : 085 BPM Atrial Rate : 085 BPM P-R Int : 214 ms QRS Dur : 156 ms QT Int : 466 ms P-R-T Axes : 047 -40 019 degrees QTc Int : 554 ms SINUS RHYTHM WITH 1ST DEGREE A-V BLOCK WITH OCCASIONAL PREMATURE VENTRICULAR COMPLEXES LEFT AXIS DEVIATION RIGHT BUNDLE BRANCH BLOCK ABNORMAL ECG WHEN COMPARED WITH ECG OF 19-FEB-2020 08:40, PREMATURE VENTRICULAR COMPLEXES ARE NOW PRESENT QRS AXIS SHIFTED LEFT Confirmed by CASSANDRA HER MD ([id number]) on 03/18/2020 2:50:28 PM Referred By: JORDI RAYGOZA Confirmed By:CASSANDRA HER MD
--- NOTE | 2020-03-19 18:09 | OP ---
DATE OF OPERATION: 03/18/2020 PREOPERATIVE DIAGNOSIS: End-stage renal disease. POSTOPERATIVE DIAGNOSIS: End-stage renal disease. PROCEDURE: Creation of right arteriovenous fistula. SURGEON: Adrai Chen DO ANESTHESIA: Fractional with a block. BLOOD LOSS: 20 mL. INDICATION FOR PROCEDURE: The patient is an 84-year-old male that needs permanent dialysis access. Preoperative vein mapping was performed in our office showing that he has adequate veins in the form of cephalic vein that can be used for AV fistula creation. Patient got cardiology and medical clearance. Patient then came in to ambulatory surgery and was consented for the procedure, understanding all risks, benefits, and alternatives. He was then taken to the operating room. DESCRIPTION OF PROCEDURE: Once in the operating room, he was laid on the operating table in supine manner, and the area of the right arm was sterilely prepped and draped in a sterile surgical manner. Under ultrasound guidance, we visualized the cephalic vein and the brachial artery above the antecubital fossa, and those were marked, and a transverse incision was drawn connecting them. We then injected 10 mL of lidocaine 1% in the area. We then took a No. 15 blade and made a 5-cm incision. Bovie electrocautery was used to control hemostasis, and we were able to get down through all the subcutaneous tissue and get down to the cephalic vein. Cephalic vein was then dissected for about 5-6 cm length, and all branches were ligated using 4-0 silk. We then went medially and went through the fascia and dissected out our brachial artery. Brachial artery was dissected anteriorly and posteriorly, and Vesseloops were placed proximally and distally. IV heparin 5000 units were now administered to the patient. We then ligated our vein distally using 2-0 silk. We then placed a 4-Persian feeding tube in our vein, and the vein dilated up appropriately, and there was good backflow. At this point, semi-linear venotomy was made on the vein using Arzola scissors. We then transposed the vein over next to the artery. After 3 minutes of being on IV heparin, we got distal and proximal control on our brachial artery. Using a 15-blade, with made an arteriotomy, extending it to 7 mm. Next, 6-0 Prolene double arm was used, and stay sutures were placed on the artery. We then using 6-0 Prolene double arm went outside-in on the vein and inside-out on the artery and ran the suture around to perform the anastomosis between the artery and the vein. Once completed, we opened the distal artery first, then the proximal artery, and there was a good thrill in our AV fistula. At this point we irrigated the wound copiously. Surgicel was placed. Vicryl 3-0 was used and the subcutaneous tissue was approximated in interrupted manner, and the skin was closed with skin jose maria. Tegaderms and 4 x 4's were placed. Patient tolerated the procedure with no complications. Patient transferred to PACU in stable condition. ADRIA CHEN DO NP/[id number]
== END 2020-03-18 13:10 | disposition home or self-care (01) ==
LOC: JASU-SURG 06:19
PROVIDERS: ATTEND Surgery Vascular Surgery
PROC: 03170ZD Bypass Right Brachial Artery to Upper Arm Vein, Open Approach (ICD-10-PCS; principal; 2020-03-18 08:00)
DX: I12.0 Hypertensive chronic kidney disease with stage 5 chronic kidney disease or end stage renal disease (principal); N18.6 End stage renal disease
CPT/HCPCS: 36415; 84132; 93005; 93010; 94760; J1644

== ENCOUNTER 2020-05-02 04:29 | Day surgery (SDC) | payer BC ==
[2020-04-28 19:01] VITALS: BMI 31.0
[2020-05-02] MEDS ORDERED: LIDOCAINE HCL 1%, 10 MG/ML (20ML VIAL) ONE (12:59)
[2020-05-02] MEDS ORDERED: MIDAZOLAM HCL 2 MG/2 ML SINGLE DOSE VIAL ONE (13:08)
[2020-05-02] MEDS ORDERED: GLYCOPYRROLATE 0.2 MG/1 ML VIAL ONE (13:08)
[2020-05-02] MEDS ORDERED: PROPOFOL 20 ML ONE ×2 (13:08)
--- NOTE | 2020-05-02 13:46 | HP ---
Admitting History and Physical - Admission Chief Complaint: Pt here for avf stenosis. Pt needs balloon maturation. Limitations to Obtaining History: No Limitations - Past Medical History Cardiovascular: Yes: CAD, CHF, HTN, Hyperlipdemia Renal/: Yes: Renal Failure Heme/Onc: Yes: Anemia Musculoskeletal: Yes: Osteoarthritis (B/l knees) - Smoking History Smoking history: Never smoked Have you smoked in the past 12 months: No If you are a former smoker, when did you quit?: 3 yrs ago - Alcohol/Substance Use Hx Alcohol Use: No Home Medications - Allergies Allergies/Adverse Reactions: Allergies Allergy/AdvReac Type Severity Reaction Status Date / Time No Known Allergies Allergy Verified 02/19/20 08:21 - Home Medications Home Medications: Ambulatory Orders Ferrous Sulfate 325 mg PO BID 11/01/18 Isosorbide Mononitrate [Isosorbide Mononitrate ER] 120 mg PO DAILY 11/01/18 Metoprolol Succinate 25 mg PO DAILY 11/01/18 Pravastatin Sodium [Pravachol -] 40 mg PO HS 11/01/18 Tamsulosin HCl [Flomax -] 0.4 mg PO DAILY 11/01/18 Apixaban [Eliquis -] 2.5 mg PO BID tablet 02/23/20 Review of Systems - Review of Systems Constitutional: reports: No Symptoms Eyes: reports: No Symptoms HENT: reports: No Symptoms Neck: reports: No Symptoms Cardiovascular: reports: No Symptoms Respiratory: reports: No Symptoms Gastrointestinal: reports: No Symptoms Genitourinary: reports: No Symptoms Breasts: reports: No Symptoms Reported Musculoskeletal: reports: No Symptoms Integumentary: reports: No Symptoms Neurological: reports: No Symptoms Endocrine: reports: No Symptoms Hematology/Lymphatic: reports: No Symptoms Psychiatric: reports: No Symptoms Physical Examination Vital Signs: Vital Signs Temperature 98.4 F 05/02/20 11:27 Pulse Rate 87 05/02/20 11:27 Respiratory Rate 16 05/02/20 11:27 Blood Pressure 111/74 05/02/20 11:27 O2 Sat by Pulse Oximetry (%) 98 05/02/20 11:27 Constitutional: Yes: Well Nourished, No Distress, Calm Eyes: Yes: WNL, Conjunctiva Clear, EOM Intact HENT: Yes: WNL, Atraumatic, Normocephalic Neck: Yes: WNL, Supple, Trachea Midline Cardiovascular: Yes: WNL, Regular Rate and Rhythm Respiratory: Yes: WNL, Regular, CTA Bilaterally Gastrointestinal: Yes: WNL, Normal Bowel Sounds Musculoskeletal: Yes: WNL Extremities: Yes: WNL Edema: No Integumentary: Yes: WNL Neurological: Yes: WNL, Alert, Oriented ...Motor Strength: WNL Psychiatric: Yes: WNL Labs: CBC, BMP 05/02/20 10:50 Problem List - Problems (1) ESRD (end stage renal disease) Assessment/Plan: for venogram of right avf today Adria Mccormick DO Problems reviewed: Yes Code(s): N18.6 - END STAGE RENAL DISEASE
[2020-05-02] MEDS ORDERED: HEPARIN NA (PORCINE) 5,000 UNITS/ML 1ML VIAL ONE ×2 (13:57→13:58)
[2020-05-02] MEDS ORDERED: ceFAZolin SODIUM 1 GM VIAL IVPB ONE (14:00)
[2020-05-02] MEDS ORDERED: LIDOCAINE HCL 1%, 10 MG/ML (20ML VIAL) NR ONE ×2 (14:04)
[2020-05-02] MEDS ORDERED: ONDANSETRON 4 MG/2 ML VIAL IVPUSH PRN (14:35)
--- NOTE | 2020-05-02 14:37 | OP ---
Operative Note - Note: Operative Date: 05/02/20 Pre-Operative Diagnosis: immature right avf Operation: venogram, venoplasty right avf Post-Operative Diagnosis: Same as Pre-op Surgeon: Adria Mccormick Anesthesia: MAC Estimated Blood Loss (mls): 30 Operative Report Dictated: Yes
[2020-05-02 16:55] VITALS: BP 130/72; PULSE 70; TEMP 97.4
--- NOTE | 2020-05-04 14:16 | OP ---
DATE OF OPERATION: 05/02/2020 PREOPERATIVE DIAGNOSIS: Immature right arteriovenous fistula. POSTOPERATIVE DIAGNOSIS: Immature right arteriovenous fistula. PROCEDURE: Venogram, venoplasty right arteriovenous fistula. SURGEON: Adria Chen DO ANESTHESIA: Fractional. BLOOD LOSS: 20 mL. INDICATIONS: Patient is an 84-year-old male that has a right AV fistula that is immature on preoperative ultrasound. Patient balloon maturation. Patient came into ambulatory surgery. Patient was COVID negative. 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 Patient was consented for the procedure understanding all the risks, benefits and alternatives. DESCRIPTION OF PROCEDURE: He was then taken to the operating room. Once in the operating room he was laid on the operating table in the supine manner and the area of the right arm was prepped and draped in a sterile surgical manner. We then under ultrasound guidance looked at the fistula and looked at its distal portion in the upper arm. Ten mL of lidocaine 1% were injected there. We then went ahead and used a micropuncture needle to puncture the percutaneous cephalic vein. Micropuncture was inserted. Micropuncture sheath was inserted and a traditional short 6-Greenlandic sheath was inserted facing towards the anastomosis. We then placed a 0.035 floppy guidewire across the anastomosis. We then went and administered to the patient 5000 units of IV heparin. We then went ahead and used the 7 x 8 Towns and performed venoplasty to the body of the AV fistula. We then used an 8 x 8 Towns and performed venoplasty to the body of the AV fistula. Completion venogram now showed that the fistula was more dilated and there was good flow. We then used a 4-0 Biosyn stitch and a [id number] stitch was placed around the sheath and the sheath was pulled. The area was wet and dried. Dermabond was placed. Patient tolerated the procedure with no complication. Patient transferred to PACU in stable condition. ADRIA CHEN DO RETREAD BUILDER/[id number]
== END 2020-05-02 16:50 | disposition home or self-care (01) ==
LOC: JASU-SURG 04:29
PROVIDERS: ATTEND Surgery Vascular Surgery
PROC: 05WY3JZ Revision of Synthetic Substitute in Upper Vein, Percutaneous Approach (ICD-10-PCS; principal; 2020-05-02 13:00)
DX: T82.858A Stenosis of other vascular prosthetic devices, implants and grafts, initial encounter (principal); I12.9 Hypertensive chronic kidney disease with stage 1 through stage 4 chronic kidney disease, or unspecified chronic kidney disease; E11.22 Type 2 diabetes mellitus with diabetic chronic kidney disease; N18.9 Chronic kidney disease, unspecified; Z87.891 Personal history of nicotine dependence
CPT/HCPCS: 36415; 76000-TC-FY; 84132; 94760; J1644

== ENCOUNTER 2021-08-02 04:34 | Day surgery (SDC) | payer BC ==
[2021-08-01 16:51] VITALS: BMI 31.6
[2021-08-02 10:42] LABS: CHLORIDE 106 mmol/L (98-107); SODIUM 140 mmol/L (136-145)
[2021-08-02 10:44] LABS: ALBUMIN 3.4 g/dl (3.4-5.0); CALCIUM 9.4 mg/dL (8.5-10.1)
[2021-08-02] MEDS ORDERED: LIDOCAINE HCL 1%, 10 MG/ML (20ML VIAL) ONE ×2 (10:44→13:07)
[2021-08-02] MEDS ORDERED: HEPARIN NA (PORCINE) 5,000 UNITS/ML 1ML VIAL ONE ×3 (10:44→13:07)
[2021-08-02 10:45] LABS: ANION GAP 17 MMOL/L (8-16); CO2 16 mmol/L (21-32); GLUCOSE,RANDOM 71 mg/dL (74-106)
[2021-08-02 10:47] LABS: SGPT/ALT 10 U/L (13-61)
[2021-08-02 10:48] LABS: SGOT/AST 7 U/L (15-37)
[2021-08-02 10:49] LABS: BILIRUBIN,TOTAL 0.9 mg/dL (0.2-1); TOT PROT 7.8 g/dl (6.4-8.2)
[2021-08-02 10:50] LABS: ALK PHOS 66 U/L (45-117)
[2021-08-02 11:06] LABS: BLOOD UREA NITROGEN 107.8 mg/dL (7-18); CREATININE 22.3 mg/dL (0.55-1.3)
[2021-08-02] MEDS ORDERED: MIDAZOLAM HCL 2 MG/2 ML SINGLE DOSE VIAL ONE ×2 (11:23→12:49)
[2021-08-02] MEDS ORDERED: ONDANSETRON 4 MG/2 ML VIAL IVPUSH PRN (11:28)
[2021-08-02] MEDS ORDERED: oxyCODONE HCL 5 MG TABLET PO PRN (11:28)
[2021-08-02] MEDS ORDERED: ceFAZolin SODIUM 1 GM VIAL IVPB ONE (11:45)
[2021-08-02] MEDS ORDERED: ceFAZolin SODIUM 1 GM VIAL ONE (11:51)
[2021-08-02] MEDS ORDERED: LIDOCAINE HCL 1%, 10 MG/ML (20ML VIAL) INF ONE (11:56)
[2021-08-02] MEDS ORDERED: PROPOFOL 20 ML ONE (13:37)
[2021-08-02 14:57] VITALS: TEMP 98.8
[2021-08-02 15:33] VITALS: BP 139/80; PULSE 77
== END 2021-08-02 15:42 | disposition home or self-care (01) ==
LOC: JASU-SURG 04:34
PROVIDERS: ATTEND Surgery Vascular Surgery
PROC: 05H Upper Veins, Insertion (ICD-10-PCS; principal; 2021-08-02 12:30)
PROC: 0JH63XZ Insertion of Tunneled Vascular Access Device into Chest Subcutaneous Tissue and Fascia, Percutaneous Approach (ICD-10-PCS; 2021-08-02 12:30)
DX: T82.868A Thrombosis due to vascular prosthetic devices, implants and grafts, initial encounter (principal); I12.0 Hypertensive chronic kidney disease with stage 5 chronic kidney disease or end stage renal disease; N18.6 End stage renal disease; Z99.2 Dependence on renal dialysis; Z87.891 Personal history of nicotine dependence
CPT/HCPCS: 36012; 36558; 36906; 36908; C1750; C1757; C1877; 36415; 71045-TC-FY; 76000-TC-FY; 80053; J1644

== ENCOUNTER 2021-08-04 10:59 | Inpatient (IN) | payer BC ==
[2021-08-04 13:45] LABS: BASO % 0.6 % (0-2.0); HEMOGLOBIN 9.9 GM/dL (11.7-16.9); LYMPH % 16.2 % (8-40); MCH 30.7 pg (25.7-33.7); MCHC 34.1 g/dl (32.0-35.9); MEAN CELL VOLUME 90.1 fl (80-96); MEAN PLT VOLUME 8.3 fl (7.5-11.1); MONO % 11.5 % (3.8-10.2); NEUT % 70.7 % (42.8-82.8); PLATELET COUNT 157 10^3/uL (134-434); RBC 3.22 M/mm3 (4.00-5.60); RDW 15.1 % (11.9-15.9); WHITE BLOOD COUNT 6.9 K/mm3 (4.0-10.0)
[2021-08-04 14:03] LABS: CHLORIDE 102 mmol/L (98-107); SODIUM 137 mmol/L (136-145)
[2021-08-04 14:05] LABS: CALCIUM 8.3 mg/dL (8.5-10.1)
[2021-08-04 14:06] LABS: ALBUMIN 2.9 g/dl (3.4-5.0); ANION GAP 15 MMOL/L (8-16); CO2 19 mmol/L (21-32); GLUCOSE,RANDOM 71 mg/dL (74-106)
[2021-08-04 14:09] LABS: SGOT/AST 9 U/L (15-37); SGPT/ALT < 6 U/L (13-61)
[2021-08-04 14:10] LABS: BILIRUBIN,TOTAL 0.9 mg/dL (0.2-1); TOT PROT 6.9 g/dl (6.4-8.2)
[2021-08-04 14:11] LABS: ALK PHOS 55 U/L (45-117)
[2021-08-04 15:20] LABS: CREATININE 12.9 mg/dL (0.55-1.3)
[2021-08-04] MEDS: SEVELAMER CARBONATE 800 MG TAB (FP) PO SCH (15:30)
[2021-08-04] MEDS ORDERED: ASPIRIN 81 MG CHEWABLE TABLETS PO ONE (16:57)
[2021-08-04] MEDS ORDERED: ASPIRIN 81 MG CHEWABLE TABLETS ONE (17:04)
[2021-08-04] MEDS ORDERED: SODIUM CHLORIDE 250 ML IV PRN (19:31)
[2021-08-05 01:33] VITALS: BMI 35.0
[2021-08-05 07:51] LABS: CHLORIDE 103 mmol/L (98-107); SODIUM 134 mmol/L (136-145)
[2021-08-05 07:57] LABS: ALBUMIN 2.4 g/dl (3.4-5.0); ANION GAP 13 MMOL/L (8-16); BLOOD UREA NITROGEN 60.7 mg/dL (7-18); CALCIUM 8.2 mg/dL (8.5-10.1); CO2 18 mmol/L (21-32)
[2021-08-05 07:58] LABS: GLUCOSE,RANDOM 60 mg/dL (74-106)
[2021-08-05 08:01] LABS: SGOT/AST 8 U/L (15-37); SGPT/ALT < 6 U/L (13-61)
[2021-08-05 08:02] LABS: BILIRUBIN,TOTAL 0.9 mg/dL (0.2-1); TOT PROT 5.9 g/dl (6.4-8.2)
[2021-08-05 08:03] LABS: ALK PHOS 48 U/L (45-117)
[2021-08-05 08:11] LABS: BASO % 1.2 % (0-2.0); EOS % 2.6 % (0-4.5); HEMATOCRIT 26.3 % (35.4-49); HEMOGLOBIN 8.8 GM/dL (11.7-16.9); LYMPH % 18.8 % (8-40); MCH 31.4 pg (25.7-33.7); MCHC 33.5 g/dl (32.0-35.9); MEAN CELL VOLUME 93.8 fl (80-96); MEAN PLT VOLUME 9.5 fl (7.5-11.1); MONO % 15.2 % (3.8-10.2); NEUT % 62.2 % (42.8-82.8); PLATELET COUNT 142 10^3/uL (134-434); RBC 2.81 M/mm3 (4.00-5.60); RDW 15.1 % (11.9-15.9); WHITE BLOOD COUNT 5.4 K/mm3 (4.0-10.0)
[2021-08-05 08:16] LABS: CREATININE 14.9 mg/dL (0.55-1.3)
[2021-08-05] MEDS: metoPROLOL SUCCINATE 25 MG TAB.SR.24H (FP) PO SCH (09:23)
[2021-08-05] MEDS: TAMSULOSIN HCL 0.4 MG CAP PO SCH (09:23)
[2021-08-05 14:07] LABS: CHLORIDE 102 mmol/L (98-107); SODIUM 136 mmol/L (136-145)
[2021-08-05 14:10] LABS: CALCIUM 8.3 mg/dL (8.5-10.1)
[2021-08-05 14:11] LABS: ANION GAP 14 MMOL/L (8-16); BLOOD UREA NITROGEN 57.8 mg/dL (7-18); CO2 20 mmol/L (21-32); GLUCOSE,RANDOM 73 mg/dL (74-106)
[2021-08-05 14:14] LABS: PHOSPHOROUS 7.2 mg/dL (2.5-4.9)
[2021-08-05 14:17] LABS: CREATININE 15.3 mg/dL (0.55-1.3)
[2021-08-05] MEDS: ATORVASTATIN CA 10 MG TABLET (FP) PO SCH (21:11)
[2021-08-05] MEDS: APIXABAN 2.5 MG TABLET PO SCH (21:11)
[2021-08-06 07:15] LABS: CHLORIDE 107 mmol/L (98-107); SODIUM 142 mmol/L (136-145)
[2021-08-06 07:23] LABS: ALBUMIN 2.3 g/dl (3.4-5.0); ANION GAP 6 MMOL/L (8-16); BLOOD UREA NITROGEN 32.8 mg/dL (7-18); CALCIUM 8.2 mg/dL (8.5-10.1); CO2 30 mmol/L (21-32); GLUCOSE,RANDOM 88 mg/dL (74-106)
[2021-08-06 07:26] LABS: SGOT/AST 11 U/L (15-37)
[2021-08-06 07:27] LABS: TOT PROT 5.9 g/dl (6.4-8.2)
[2021-08-06 07:29] LABS: ALK PHOS 46 U/L (45-117)
[2021-08-06 08:00] LABS: CREATININE 10.3 mg/dL (0.55-1.3); SGPT/ALT < 6 U/L (13-61)
[2021-08-06 08:13] LABS: BASO % 1.2 % (0-2.0); EOS % 2.3 % (0-4.5); HEMATOCRIT 26.4 % (35.4-49); HEMOGLOBIN 8.9 GM/dL (11.7-16.9); LYMPH % 15.8 % (8-40); MCH 31.5 pg (25.7-33.7); MCHC 33.9 g/dl (32.0-35.9); MEAN PLT VOLUME 9.6 fl (7.5-11.1); MONO % 16.2 % (3.8-10.2); NEUT % 64.5 % (42.8-82.8); PLATELET COUNT 145 10^3/uL (134-434); RBC 2.84 M/mm3 (4.00-5.60); RDW 15.2 % (11.9-15.9); WHITE BLOOD COUNT 5.3 K/mm3 (4.0-10.0)
[2021-08-06] MEDS: SEVELAMER CARBONATE 800 MG TAB (FP) PO SCH ×3 (09:42→18:29)
[2021-08-06] MEDS: metoPROLOL SUCCINATE 25 MG TAB.SR.24H (FP) PO SCH (09:42)
[2021-08-06] MEDS: APIXABAN 2.5 MG TABLET PO SCH ×2 (09:42→21:28)
[2021-08-06] MEDS: TAMSULOSIN HCL 0.4 MG CAP PO SCH (09:43)
[2021-08-06] MEDS ORDERED: SODIUM CHLORIDE 250 ML IV PRN (12:51)
[2021-08-06] MEDS: ATORVASTATIN CA 10 MG TABLET (FP) PO SCH (21:28)
[2021-08-06] MEDS: KETOROLAC TROMETHAMINE 0.5% EYE DROP 1 DROP DROPS OS SCH (21:42)
[2021-08-06] MEDS: prednisoLONE ACETATE 1% OPHTH SUSP 5 ML BOTTLE OS SCH (21:44)
[2021-08-06] MEDS: MOXIFLOXACIN HCL 0.5% OPHTHALMIC 3 ML BOTTLE OS SCH (21:49)
[2021-08-07] MEDS: prednisoLONE ACETATE 1% OPHTH SUSP 5 ML BOTTLE OS SCH ×6 (01:05→20:02)
[2021-08-07] MEDS: MOXIFLOXACIN HCL 0.5% OPHTHALMIC 3 ML BOTTLE OS SCH ×3 (05:31→21:11)
[2021-08-07 07:35] LABS: HEMATOCRIT 27.6 % (35.4-49); HEMOGLOBIN 9.3 GM/dL (11.7-16.9); MCH 31.6 pg (25.7-33.7); MCHC 33.6 g/dl (32.0-35.9); MEAN PLT VOLUME 9.3 fl (7.5-11.1); PLATELET COUNT 173 10^3/uL (134-434); RBC 2.93 M/mm3 (4.00-5.60); RDW 15.6 % (11.9-15.9); WHITE BLOOD COUNT 6.6 K/mm3 (4.0-10.0)
[2021-08-07 07:50] LABS: CHLORIDE 106 mmol/L (98-107); SODIUM 142 mmol/L (136-145)
[2021-08-07 07:52] LABS: ANION GAP 11 MMOL/L (8-16); BLOOD UREA NITROGEN 44.2 mg/dL (7-18); CALCIUM 8.9 mg/dL (8.5-10.1); CO2 25 mmol/L (21-32); GLUCOSE,RANDOM 89 mg/dL (74-106)
[2021-08-07 08:00] LABS: CREATININE 12.2 mg/dL (0.55-1.3)
[2021-08-07] MEDS: SEVELAMER CARBONATE 800 MG TAB (FP) PO SCH ×2 (11:47→17:36)
[2021-08-07] MEDS: APIXABAN 2.5 MG TABLET PO SCH ×2 (12:00→21:10)
[2021-08-07] MEDS ORDERED: REGADENOSON 0.4 MG/5 ML PRE-FILLED SYRINGE IVPUSH ONE ×2 (14:40→15:15)
[2021-08-07] MEDS: metoPROLOL SUCCINATE 25 MG TAB.SR.24H (FP) PO SCH (15:56)
[2021-08-07] MEDS: KETOROLAC TROMETHAMINE 0.5% EYE DROP 1 DROP DROPS OS SCH (15:57)
[2021-08-07] MEDS: TAMSULOSIN HCL 0.4 MG CAP PO SCH (15:57)
[2021-08-07] MEDS: ATORVASTATIN CA 10 MG TABLET (FP) PO SCH (21:10)
[2021-08-08] MEDS: prednisoLONE ACETATE 1% OPHTH SUSP 5 ML BOTTLE OS SCH ×4 (01:00→13:23)
[2021-08-08] MEDS: SEVELAMER CARBONATE 800 MG TAB (FP) PO SCH ×2 (01:00→07:50)
[2021-08-08] MEDS: MOXIFLOXACIN HCL 0.5% OPHTHALMIC 3 ML BOTTLE OS SCH ×2 (05:15→13:23)
[2021-08-08] MEDS: TAMSULOSIN HCL 0.4 MG CAP PO SCH (07:50)
[2021-08-08] MEDS: metoPROLOL SUCCINATE 25 MG TAB.SR.24H (FP) PO SCH (09:18)
[2021-08-08] MEDS: APIXABAN 2.5 MG TABLET PO SCH (09:18)
[2021-08-08] MEDS: KETOROLAC TROMETHAMINE 0.5% EYE DROP 1 DROP DROPS OS SCH (09:19)
[2021-08-08 14:24] VITALS: BP 117/54; PULSE 72; TEMP 97.8
== END 2021-08-08 16:25 | disposition home or self-care (01) | DRG 149 ==
LOC: JER 10:59 → JERBED 17:46 → MERGE 17:46 → J4W 21:45
PROVIDERS: ADMIT Internal Medicine; ATTEND Internal Medicine
PROC: 5A1D70Z Performance of Urinary Filtration, Intermittent, Less than 6 Hours Per Day (ICD-10-PCS; principal; 2021-08-07)
DX: R42 Dizziness and giddiness (principal); N18.6 End stage renal disease; I13.2 Hypertensive heart and chronic kidney disease with heart failure and with stage 5 chronic kidney disease, or end stage renal disease; I24.8 Other forms of acute ischemic heart disease; E78.5 Hyperlipidemia, unspecified; Z99.2 Dependence on renal dialysis; I95.9 Hypotension, unspecified; I48.0 Paroxysmal atrial fibrillation; R91.1 Solitary pulmonary nodule; D64.9 Anemia, unspecified; I45.10 Unspecified right bundle-branch block; I44.0 Atrioventricular block, first degree; I49.3 Ventricular premature depolarization; N40.0 Benign prostatic hyperplasia without lower urinary tract symptoms; R00.0 Tachycardia, unspecified; I50.9 Heart failure, unspecified
CPT/HCPCS: 36415; 71045-TC-FY; 71275-TC; 78452-TC; 80048; 80053; 82550; 82553; 84100; 84484; 85025; 85027; 86803; 87040; 87340; 93005; 93010; 93017; 93306-TC; 99285-25; A9502; C9803; J2785; U0003; U0005

== ENCOUNTER → 2022-07-20 | Emergency (ER) | payer BC ==
[~2022-07-20] MED LIST: EPINEPHrine 1:10,000 (P-F SYR) 1 MG/10 ML DISP.SYRIN ONE
[2022-07-20 10:06] VITALS: BP 0/0; PULSE 0; RESP 0; BMI 37.8
== END | disposition expired ==
LOC: JER 09:23
DX: I46.9 Cardiac arrest, cause unspecified (principal)
CPT/HCPCS: 99283-25